=== PATIENT | female | born 1940 | race Native Hawaiian/Other Pacific Islander ===

== ENCOUNTER 2016-06-04 03:12 | Emergency (ER) | payer MEDICARE, OTHER ==
[2016-06-04 03:13] VITALS: BMI 25.4
--- NOTE | 2016-06-04 03:44 | C.PDOC ---
History Of Present Illness 76F c/o constant diffuse abd pain since last night. no exac or reliev fx. she took nexium. no n/v/d, fever, or dysuria. psh gb and surgery for "twisted colon. " Time Seen by Provider: 06/04/16 03:29 Chief Complaint (Nursing): Abdominal Pain Past Medical History Vital Signs: Last Vital Signs Temp 98.4 F 06/04/16 06:47 Pulse 82 06/04/16 06:47 Resp 18 06/04/16 06:47 BP 128/80 06/04/16 06:47 Pulse Ox 99 06/04/16 06:47 - Medical History PMH: Colonic Polyps, Diabetes, Gastritis, Gastrointestinal Ulcer, Gall Bladder Disease, Hypercholesterolemia, Hypothyroidism, 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), Pneumonia Denies: Chronic Kidney Disease Surgical History: Appendectomy, Cholecystectomy, Endoscopy - [facility] Procedures CHOLECYSTECTOMY (06/03/13) CLOSED ENDOSCOPIC BIOPSY OF LARGE INTESTINE (06/06/14) COLONOSCOPY (10/26/12) ESOPHAGOGASTRODUODENOSCOPY [EGD] W/CLOSED BIOPSY (01/31/14) EXCISION OF STOMACH, ENDO, DIAGN (02/26/16) Family History: States: Unknown Family Hx - Social History Hx Tobacco Use: No Hx Alcohol Use: No Hx Substance Use: No - Immunization History Hx Tetanus Toxoid Vaccination: No Hx Influenza Vaccination: Yes Hx Pneumococcal Vaccination: Yes Review Of Systems Except As Marked, All Systems Reviewed And Found Negative. Constitutional: Negative for: Fever, Chills, Malaise Cardiovascular: Negative for: Chest Pain Respiratory: Negative for: Cough, Shortness of Breath Gastrointestinal: Positive for: Abdominal Pain. Negative for: Nausea, Vomiting , Diarrhea, Constipation Genitourinary: Negative for: Dysuria, Frequency Neurological: Negative for: Weakness, Numbness Physical Exam - Physical Exam Appears: Well, Non-toxic, No Acute Distress Skin: Warm, Dry Head: Atraumatic Eye(s): bilateral: PERRL Oral Mucosa: Moist Neck: Normal ROM Cardiovascular: Rhythm Regular Respiratory: No Decreased Breath Sounds, No Accessory Muscle Use, No Rales, No Rhonchi, No Wheezing Gastrointestinal/Abdominal: Soft, Tenderness (RLQ), No Guarding, No Rebound Extremity: No Swelling Neurological/Psych: Oriented x3, Other (no focal deficits) ED Course And Treatment - Laboratory Results Result Diagrams: 06/04/16 04:15 06/04/16 04:15 O2 Sat by Pulse Oximetry: 96 Medical Decision Making Medical Decision Making: CT abd/pelvis impression vrad: IMPRESSION: - Diverticulosis of the colon. No diverticulitis. - Moderate fecal retention. Stable dilatation of the proximal colon - Prior right hemicolectomy. - Apparent fibroid extending off the uterus is stable cxr- nad 640am- disc results w the pt. she is feeling better and on re-exam has only very mild tenderness. I did offer to admit her for further observation and eval of her pain bu she wished to go home and will call Dr Wilkes today to make a follow up appt. will return if worse. Disposition - Disposition Referrals: Kyaw Wilkes MD [Staff Provider] - Disposition: HOME/ ROUTINE Disposition Time: 06:43 Condition: IMPROVED Additional Instructions: Please follow up with your doctor: call today to make an appointment. Return to the ER for any worsening symptoms or for any other concerns. Instructions: Acute Abdominal Pain (ED) Forms: General Discharge Instructions - Clinical Impression Clinical Impression: Abdominal pain
[2016-06-04] MEDS ORDERED: Sodium Chloride 0.9% 1,000 ML IV ONE (03:47)
[2016-06-04] MEDS ORDERED: Sodium Chloride 0.9% 1,000 ML ONE (04:01)
[2016-06-04 04:19] LABS: BASO # 0.1 K/uL (0.0-0.2); BASO % 0.7 % (0.0-2.0); EOS # 0.2 K/uL (0.0-0.7); EOS % 2.3 % (0.0-4.0); HEMATOCRIT 42.9 % (34.0-47.0); LYMPH # 1.4 K/uL (1.0-4.3); LYMPH % 18.4 % (20.0-40.0); MEAN CORPUSCULAR HEMOGLOBIN 28.5 pg (27.0-31.0); MEAN CORPUSCULAR HGB CONC 33.5 g/dL (33.0-37.0); MEAN PLATELET VOLUME 8.9 fL (7.2-11.7); MONO # 0.4 K/uL (0.0-0.8); MONO % 5.5 % (0.0-10.0); NRBC % 0.1 % (0.0-2.0); RBC URINE 1 /hpf (0-3); URINE BILIRUBIN NEGATIVE (NEGATIVE); URINE BLOOD NEGATIVE (NEGATIVE); URINE COLOR Yellow (YELLOW); URINE GLUCOSE (UA) NORMAL (Normal); URINE HYALINE CAST 0-2 /lpf (0-2); URINE KETONE NEGATIVE (NEGATIVE); URINE LEUKOCYTE ESTERASE TRACE Leu/uL (Negative); URINE PROTEIN NEGATIVE (NEGATIVE); URINE UROBILINOGEN NORMAL mg/dL (0.2-1.0); WBC URINE 9 /hpf (0-5); WHITE BLOOD COUNT 7.4 K/uL (4.8-10.8)
[2016-06-04 04:25] LABS: CHLORIDE 99 mmol/L (98-107)
[2016-06-04 04:26] LABS: POTASSIUM 4.4 mmol/L (3.6-5.2); SODIUM 139 mmol/L (132-148)
[2016-06-04 04:28] LABS: ALB/GLOB RATIO 1.3 (1.0-2.1); ALKALINE PHOSPHATASE 78 U/L (38-126); ALT/SGPT 28 U/L (9-52); AST/SGOT 37 U/L (14-36); BILIRUBIN,TOTAL 1.4 mg/dL (0.2-1.3); BLOOD UREA NITROGEN 17 mg/dL (7-17); CARBON DIOXIDE 26 mmol/L (22-30); GFR AFRICAN-AMERICAN > 60; GLUCOSE,RANDOM 116 mg/dL (65-105); TOTAL PROTEIN 7.6 g/dL (6.3-8.3)
[2016-06-04] MEDS ORDERED: Iodixanol 320 MG/ML 100 ML BOTTLE IV ONE (05:13)
[2016-06-04 06:48] VITALS: BP 128/80; PULSE 82; RESP 18; TEMP 98.4
--- NOTE | 2016-06-04 08:20 | CT ---
PROCEDURE: CT Abdomen and Pelvis with contrast HISTORY: abdominal pain COMPARISON: Comparison is made to the previous study dated 02/25/2016 TECHNIQUE: Contrast dose: 100 mL Visipaque 320 Radiation dose: Total exam DLP = 280.84 mGy-cm. FINDINGS: LOWER THORAX: Unremarkable. LIVER: No significant interval change in the liver noted since the previous exam. Again seen is low-attenuation lesion at the left liver lobe measures 11.5 millimeter in the current study which has increased in size since the previous exam. The possibility of neoplasm is not excluded. GALLBLADDER AND BILE DUCTS: The gallbladder is not visualized consistent with cholecystectomy. The CBD is slightly dilated. PANCREAS: Unremarkable. No gross lesion or ductal dilatation. SPLEEN: Unremarkable. ADRENALS: Unremarkable. No mass. KIDNEYS AND URETERS: The kidneys enhance symmetrically without evidence of hydronephrosis. Again seen is large cystic lesion at the upper pole of the right kidney. VASCULATURE: Unremarkable. No aortic aneurysm. BOWEL: The patient status post partial colectomy. Bowel anastomosis is seen at the left mid abdomen. Colonic diverticulosis are again seen without evidence of diverticulitis. There is a diffuse small bowel wall thickening more prominent at the lower abdomen associated with mild enhance wall and slightly dilated bowel loops. . APPENDIX: The appendix is not visualized likely resected with the right colon. PERITONEUM: Unremarkable. No free fluid. No free air. LYMPH NODES: Unremarkable. No enlarged lymph nodes. BLADDER: Unremarkable. REPRODUCTIVE: The uterus is enlarged. Again seen is pedunculated fibroid from the right uterine fundus measures 5.7 centimeter in the transverse diameter. BONES: No significant interval change in the osseous structures since the previous exam. Again seen is grade 1 anterior spondylolisthesis of L4 relative to L5. OTHER FINDINGS: None. IMPRESSION: Interval increase in the size of left liver lobe low-attenuation lesion since the previous exam. The possibility of malignant neoplasm such as liver metastasis is not totally excluded. . If clinically warranted further assessment by MRI may be obtained. Diffuse small bowel wall thickening at the mid and lower abdomen suspicious for enteritis. No evidence of high-grade bowel obstruction. Postsurgical changes consistent with patient's history of prior partial colectomy. Otherwise no significant interval change compared to the previous exam. Preliminary report was submitted by [facility].
--- NOTE | 2016-06-04 09:13 | RAD ---
HISTORY: Abdominal pain COMPARISON: 02/26/2016. FINDINGS: LUNGS: The lungs are clear. PLEURA: No significant pleural effusion identified, no pneumothorax apparent. CARDIOVASCULAR: The cardiomediastinal silhouette is normal. OSSEOUS STRUCTURES: No significant abnormalities. VISUALIZED UPPER ABDOMEN: Normal. OTHER FINDINGS: None. IMPRESSION: No active pulmonary disease.
[2016-06-07 13:03] VITALS: O2SAT 96
== END 2016-06-04 07:04 | disposition home or self-care (01) ==
LOC: C.ER 03:12
DX: R10.31 Right lower quadrant pain (principal)

== ENCOUNTER 2016-06-05 21:09 | Observation (INO) | payer MEDICARE, OTHER ==
[2016-06-05 21:09] VITALS: BMI 25.4
[2016-06-05] MEDS ORDERED: Sodium Chloride 0.9% 1,000 ML IV ONE (22:38)
[2016-06-05] MEDS ORDERED: Morphine 4 MG/ML VIAL ONE (22:49)
[2016-06-05] MEDS ORDERED: Sodium Chloride 0.9% 1,000 ML ONE (22:49)
[2016-06-05 22:56] LABS: BASO % 0.5 % (0.0-2.0); EOS # 0.2 K/uL (0.0-0.7); EOS % 2.9 % (0.0-4.0); HEMATOCRIT 41.1 % (34.0-47.0); LYMPH # 1.4 K/uL (1.0-4.3); LYMPH % 25.8 % (20.0-40.0); MEAN CELL VOLUME 84.8 fL (81.0-99.0); MEAN CORPUSCULAR HEMOGLOBIN 27.4 pg (27.0-31.0); MEAN CORPUSCULAR HGB CONC 32.3 g/dL (33.0-37.0); MEAN PLATELET VOLUME 8.7 fL (7.2-11.7); MONO # 0.4 K/uL (0.0-0.8); MONO % 7.2 % (0.0-10.0); RED CELL DISTRIBUTION WIDTH 13.9 % (11.5-14.5); WHITE BLOOD COUNT 5.6 K/uL (4.8-10.8)
[2016-06-05 23:03] LABS: RBC URINE 1 /hpf (0-3); URINE BACTERIA OCC (<OCC); URINE BILIRUBIN NEGATIVE (NEGATIVE); URINE BLOOD NEGATIVE (NEGATIVE); URINE COLOR Yellow (YELLOW); URINE GLUCOSE (UA) NORMAL (Normal); URINE KETONE NEGATIVE (NEGATIVE); URINE LEUKOCYTE ESTERASE TRACE Leu/uL (Negative); URINE PROTEIN NEGATIVE (NEGATIVE); URINE UROBILINOGEN NORMAL mg/dL (0.2-1.0); WBC URINE 9 /hpf (0-5)
[2016-06-05 23:04] LABS: CHLORIDE 99 mmol/L (98-107); POTASSIUM 3.6 mmol/L (3.6-5.2); SODIUM 139 mmol/L (132-148)
[2016-06-05 23:06] LABS: BILIRUBIN,TOTAL 0.6 mg/dL (0.2-1.3); GFR AFRICAN-AMERICAN > 60
--- NOTE | 2016-06-05 23:06 | C.PDOC ---
History Of Present Illness 76 year old pt c/o abdominal pain that started 3 days ago. Pt was seen here in the ED yesterday and blood works, urinalysis, CT, and other lab works were done. Lab results were all fine for pt during prior visit. Pt went home and returned stating pain is worse today. Pt denies cough, fever, nausea, vomiting, diarrhea, dysuria, hematuria, vaginal bleeding, vaginal discharge, or any other complaints. Time Seen by Provider: 06/05/16 21:59 Chief Complaint (Nursing): Abdominal Pain History Per: Patient History/Exam Limitations: no limitations Onset/Duration Of Symptoms: Days Current Symptoms Are (Timing): Still Present Severity: Mild Associated Symptoms: denies: Fever, Chills, Nausea, Vomiting, Diarrhea, Other ( Hematuria, dysuria, vaginal bleeding or discharge. Cough) Past Medical History Reviewed: Historical Data, Nursing Documentation, Vital Signs Vital Signs: Last Vital Signs Temp 97.9 F 06/05/16 23:00 Pulse 59 L 06/05/16 23:00 Resp 18 06/05/16 23:00 BP 146/72 06/05/16 23:00 Pulse Ox 98 06/05/16 23:15 - Medical History PMH: Colonic Polyps, Diabetes, Gastritis, Gastrointestinal Ulcer, Gall Bladder Disease, Hypercholesterolemia, Hypothyroidism, 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), Pneumonia Denies: Chronic Kidney Disease Surgical History: Appendectomy, Cholecystectomy, Endoscopy - [facility] Procedures CHOLECYSTECTOMY (06/03/13) CLOSED ENDOSCOPIC BIOPSY OF LARGE INTESTINE (06/06/14) COLONOSCOPY (10/26/12) ESOPHAGOGASTRODUODENOSCOPY [EGD] W/CLOSED BIOPSY (01/31/14) EXCISION OF STOMACH, ENDO, DIAGN (02/26/16) Family History: States: Unknown Family Hx - Social History Hx Tobacco Use: No Hx Alcohol Use: No Hx Substance Use: No - Immunization History Hx Tetanus Toxoid Vaccination: No Hx Influenza Vaccination: Yes Hx Pneumococcal Vaccination: Yes Review Of Systems Except As Marked, All Systems Reviewed And Found Negative. Constitutional: Negative for: Fever, Chills Respiratory: Negative for: Cough Gastrointestinal: Positive for: Abdominal Pain. Negative for: Nausea, Vomiting , Diarrhea Genitourinary: Negative for: Dysuria, Hematuria, Vaginal Discharge, Vaginal Bleeding Physical Exam - Physical Exam Appears: Well, Non-toxic Skin: Warm, Dry Head: Atraumatic, Normacephalic Cardiovascular: Rhythm Regular Respiratory: Normal Breath Sounds, No Rales, No Rhonchi, No Wheezing Gastrointestinal/Abdominal: Tenderness (Mild pain. Abdominal tenderness ( suprapubic and RLQ)), No Guarding, No Rebound, No Other (No CVA tenderness) Neurological/Psych: Oriented x3, Normal Speech ED Course And Treatment - Laboratory Results Result Diagrams: 06/05/16 22:53 06/05/16 22:53 O2 Sat by Pulse Oximetry: 98 Progress Note: Pt was given repeated labs from prior visit. Fluid morphine and zofran was given to pt. - Scribe Statement The provider has reviewed the documentation as recorded by the Scribe Ronnie gage All medical record entries made by the Scribe were at my direction and personally dictated by me. I have reviewed the chart and agree that the record accurately reflects my personal performance of the history, physical exam, medical decision making, and the department course for this patient. I have also personally directed, reviewed, and agree with the discharge instructions and disposition.
[2016-06-05 23:07] LABS: ALB/GLOB RATIO 1.5 (1.0-2.1); ALKALINE PHOSPHATASE 85 U/L (38-126); ALT/SGPT 25 U/L (9-52); AST/SGOT 28 U/L (14-36); BLOOD UREA NITROGEN 18 mg/dL (7-17); CALCIUM 8.8 mg/dl (8.6-10.4); CARBON DIOXIDE 25 mmol/L (22-30); GLUCOSE,RANDOM 135 mg/dL (65-105); TOTAL PROTEIN 6.8 g/dL (6.3-8.3)
[2016-06-06 01:22] VITALS: RESP 20
[2016-06-06 08:18] VITALS: O2SAT 97
[2016-06-06] MEDS: Enoxaparin 40 mg Syringe SC SCH (09:51)
--- NOTE | 2016-06-06 12:28 | PN ---
DATE: 06/06/2016 LOCATION: 360, bed B. I was called for GI consultation. The patient is seen and fully examined on 06/05/2016 as requested by the admitting MD. The patient reexamined and evaluated today with less abdominal pain, no nausea and vomiting, with positive bowel sounds. No reported active bleeding. No reported vomiting, but mi ld nausea with slight dyspepsia. The entire chart is reviewed, including but not limited to the most recent lab and radiology study re sults, current and previous medication list, current and the previous medical events, and the patient still has normal blood glucose level of 94 with normal CBC. PHYSICAL EXAMINATION: GENERAL: A 76-year-old female, awake, alert, oriented. Afebrile with pulse of 58, respiratory rate 20-22, with blood pressure 110/58. HEENT: Showed pale, dry mucoid membrane. Nonicteric sclerae. LUNGS: Few scattered crepitation, decreased air entry at bases. HEART: Positive S1 and S2. ABDOMEN: Soft with slight lower abdominal tenderness. Bowel sounds are present. No mass or organom egaly. No rebound tenderness or guarding. RECTAL EXAMINATION: Positive tone. Vault is empty. EXTREMITIES: Without significant edema, clubbing, or cyanosis. No reported neurological deficits, sensory, or motor. IMPRESSION: 1. Re-exacerbation of peptic ulcer disease. 2. Acute gastroenteritis. 3. Known history of gastric ulcer. 4. Colon cancer with status post partial colon resection by history in 2004. 5. Known history of hypothyroidism, hyperlipidemia, as well as diabetes mellitus. 6. Known history of status post cholecystectomy and appendectomy in the past, as per the patient's st atement. SUGGESTION: 1. Agree with your plan. 2. IV antibiotics. 3. Vancomycin p.o. 4. Proton pump inhibitors. 5. tab 1 twice a day. 6. No need for aggressive GI workup in the meantime, and the stool for C. diff to be ordered. Holger Palencia MD cc: 14 TT: 06/06/2016 12:27:30 Confirmation # [id number] Dictation # [id number] frannie
--- NOTE | 2016-06-06 19:31 | CP.PCM.HP ---
History of Present Illness - History of Present Illness History of Present Illness: 76 years old female complaining of a lower abdominal pain for the past few days. Denies any fever, diarrhea, nausea, vomiting. She was seen in the ED yesterday, but was sent home because, all her lab works were normal and a CT scan of the abdomen and pelvis with contrast did not reveal any acute process. But she came back today with the same complaint and request to be hospitalized and be seen by her gastro-enterologist, Dr Palencia. She had a benign colonoscopy a few weeks ago. She is known to have a NIDDM, a HPTN, a hypothyroidism, a s/p Right hemicolectomy for cancer in 2004, and s/p cholecystectomy and appendectomy. Present on Admission - Present on Admission Any Indicators Present on Admission: No Review of Systems - Gastrointestinal Gastrointestinal: Abdominal Pain Past Patient History - Infectious Disease Hx of Infectious Diseases: None - Tetanus Immunizations Tetanus Immunization: Unknown - Past Medical History & Family History Past Medical History?: Yes - Past Social History Smoking Status: Never Smoked Alcohol: None Drugs: Denies Home Situation {Lives}: With Family Domestic Violence: Negative - CARDIAC Hx Cardiac Disorders: Yes Hx Hypercholesterolemia: Yes - PULMONARY Hx Respiratory Disorders: No - NEUROLOGICAL Hx Neurological Disorder: No - HEENT Hx HEENT Problems: Yes Hx Cataracts: Yes (BIOL) - RENAL Hx Chronic Kidney Disease: No - ENDOCRINE/METABOLIC Hx Endocrine Disorders: Yes Hx Diabetes Mellitus Type 2: Yes Hx Hypothyroidism: Yes - HEMATOLOGICAL/ONCOLOGICAL Hx Blood Disorders: No - INTEGUMENTARY Hx Dermatological Problems: No - MUSCULOSKELETAL/RHEUMATOLOGICAL Hx Musculoskeletal Disorders: Yes Hx Falls: No Other/Comment: TORN LIGAMENTS BILATERAL KNEES - GASTROINTESTINAL Hx Gastrointestinal Disorders: Yes Hx Gall Bladder Disease: Yes Hx Gastritis: Yes - GENITOURINARY/GYNECOLOGICAL Hx Genitourinary Disorders: No - PSYCHIATRIC Hx Psychophysiologic Disorder: No Hx Substance Use: No - SURGICAL HISTORY Hx Surgeries: Yes Hx Appendectomy: Yes Hx Cholecystectomy: Yes Other/Comment: S/p right hemicolectomy for colon cancer in 2004. - ANESTHESIA Hx Anesthesia: Yes Hx Anesthesia Reactions: No Hx Malignant Hyperthermia: No Meds Allergies/Adverse Reactions: Allergies Allergy/AdvReac Type Severity Reaction Status Date / Time No Known Allergies Allergy Verified 02/26/16 06:27 Physical Exam - Constitutional Appears: No Acute Distress - Head Exam Head Exam: NORMAL INSPECTION - Eye Exam Eye Exam: Normal appearance - ENT Exam ENT Exam: Normal Exam - Neck Exam Neck exam: Positive for: Normal Inspection - Respiratory Exam Respiratory Exam: Clear to Auscultation Bilateral, NORMAL BREATHING PATTERN - Cardiovascular Exam Cardiovascular Exam: REGULAR RHYTHM - GI/Abdominal Exam GI & Abdominal Exam: Normal Bowel Sounds, Soft - Rectal Exam Rectal Exam: NORMAL INSPECTION - Extremities Exam Extremities exam: Positive for: normal inspection - Back Exam Back exam: NORMAL INSPECTION - Neurological Exam Neurological exam: Alert, CN II-XII Intact, Normal Gait, Oriented x3 - Psychiatric Exam Psychiatric exam: Anxious - Skin Skin Exam: Dry, Intact, Normal Color, Warm Results - Vital Signs Recent Vital Signs: Last Vital Signs Temp 98.1 F 06/06/16 16:00 Pulse 62 06/06/16 16:00 Resp 20 06/06/16 16:00 BP 103/61 06/06/16 16:00 Pulse Ox 97 06/06/16 16:00 - Labs Result Diagrams: 06/05/16 22:53 06/05/16 22:53 Labs: Laboratory Results - last 24 hr 06/06/16 06/06/16 06/06/16 07:23 11:32 11:53 POC Glucose (mg/dL) 94 56 L 109 06/06/16 16:15 POC Glucose (mg/dL) 102 Assessment & Plan (1) Abdominal pain Assessment and Plan: GI evaluation by Dr Palencia. Status: Acute
[2016-06-07 01:34] VITALS: TEMP 97.8
[2016-06-07] MEDS ORDERED: Levothyroxine 50 MCG TAB PO SCH (06:30)
[2016-06-07 10:51] VITALS: BP 148/75; PULSE 54
[2016-06-07] MEDS: Enoxaparin 40 mg Syringe SC SCH (11:02)
--- NOTE | 2016-06-07 12:43 | PN ---
DATE: 06/07/2016 LOCATION: 360, bed B. This is a 76-year-old female seen and examined in rounds without significant clinical changes. Awake , alert, oriented. Denied any nausea or vomiting, but slight lower abdominal pain on and off. No re ported active bleeding. The entire chart is reviewed including, but not limited to the most recent lab and radiology study re sults, current and the previous medication lists, current and the previous medical events with recent blood glucose level of 118. PHYSICAL EXAMINATION: GENERAL: A 76-year-old female. VITAL SIGNS: Afebrile with heart rate of 58, respiratory rate 20-22, blood pressure 140/72. HEENT: Showed pale, dry oral mucoid membrane. Nonicteric sclerae. LUNGS: Few scattered crepitation. Decreased air entry at bases. HEART: Positive S1 and S2. ABDOMEN: Soft with mild generalized tenderness. No mass or organomegaly. No rebound tenderness or guarding. EXTREMITIES: Without edema, clubbing or cyanosis. NEUROLOGIC: No new reported neurological deficits, sensory or motor. IMPRESSION: 1. Peptic ulcer disease. 2. Acute gastritis. 3. Acute enteritis with mild reported ileus. 4. Known history of gastric ulcer. 5. Known history of cancer of the colon. 6. Status post partial colon resection by history in 2004. 7. Known history of hypertension, diabetes mellitus and hyperlipidemia. 8. History of status post appendectomy as well as cholecystectomy. SUGGESTION: 1. Continue current management. 2. IV antibiotics. 3. Bentyl p.o. 4. tab 1 tablet increased to 3 times a day. 5. No need for aggressive GI workup and cancer markers to be repeated. Holger Palencia MD cc: 14 TT: 06/07/2016 12:43:04 Confirmation # [id number] Dictation # [id number] tn
--- NOTE | 2016-06-07 14:55 | CP.PCM.PN ---
Subjective - Date & Time of Evaluation Date of Evaluation: 06/07/16 Time of Evaluation: 14:52 - Subjective Subjective: Patient still has a mild RLQ abdominal pain, but has normal BM, and is afebrile , with no nausea. Dr Palencia suggested antibiotic to treat her Enteritis. Will discharge her home on Metronidazole 500 mg PO TID and Cipro 500 mg PO BID for 7 days. Objective - Vital Signs/Intake and Output Vital Signs (last 24 hours): Temp Pulse Resp BP Pulse Ox 97.8 F 54 L 20 148/75 97 06/07/16 08:00 06/07/16 08:00 06/07/16 08:00 06/07/16 08:00 06/07/16 08:00 Intake and Output: 06/07/16 06/07/16 06:59 18:59 Intake Total 200 Balance 200 - Medications Medications: Current Medications Enoxaparin Sodium (Lovenox) 40 mg SC DAILY [facility] Last Admin: 06/07/16 11:02 Dose: 40 mg Levothyroxine Sodium (Synthroid) 50 mcg PO DAILY@0630 [facility] Last Admin: 06/07/16 06:08 Dose: 50 mcg Metformin HCl (Glucophage Xr) 500 mg PO BIDAC [facility] Last Admin: 06/07/16 08:50 Dose: 500 mg Rosuvastatin Calcium (Crestor) 5 mg PO HS [facility] Last Admin: 06/06/16 21:10 Dose: 5 mg - Constitutional Appears: No Acute Distress - Head Exam Head Exam: NORMAL INSPECTION - Eye Exam Eye Exam: Normal appearance - ENT Exam ENT Exam: Normal Exam - Neck Exam Neck Exam: Normal Inspection - Respiratory Exam Respiratory Exam: Clear to Ausculation Bilateral, NORMAL BREATHING PATTERN - Cardiovascular Exam Cardiovascular Exam: REGULAR RHYTHM - GI/Abdominal Exam GI & Abdominal Exam: Soft, Normal Bowel Sounds Additional comments: Mild tenderness of the RLQ, but no rebound. - Rectal Exam Rectal Exam: Deferred - Extremities Exam Extremities Exam: Normal Inspection - Back Exam Back Exam: NORMAL INSPECTION - Neurological Exam Neurological Exam: Alert, Awake, Normal Gait, Oriented x3 - Psychiatric Exam Psychiatric exam: Anxious - Skin Skin Exam: Dry, Intact, Normal Color, Warm Assessment and Plan (1) Abdominal pain Assessment & Plan: Abdominal pain much better after a large BM yesterday and today. Dr Palencia suggested antibiotic for the acute enteritis. Will discharge her home on Metronidazole and cipro. Status: Acute
--- NOTE | 2016-06-09 09:24 | CON ---
DATE: 06/05/[address] Holger Palencia to Dr. Kyaw Wilkes. I was called for GI consultation by the primary MD. Chart is reviewed. The patient examined. All t he available lab and radiology study results seen pre and post my physical examination on 06/05/2016 w ith the staff on the floor. Case discussed with the primary MD on 06/05/2016 at length. This 76-year-old female was admitted to the hospital through the Emergency Room with a main complaint of severe crampy abdominal pain, postprandial abdominal distention, change of bowel movement habit w ith nausea and dyspepsia, which was getting worse through the last 24 hours, for which she contacted my office and was directed to come to the hospital. No reported active bleeding. No palpitation, chest pain or significant shortness of breath. After being admitted to the hospital, patient was found to have initially normal CBC with increased b lood glucose level 135 and increased BUN to 18. PHYSICAL EXAMINATION: GENERAL: A 76-year-old female, appeared to be awake, alert, oriented. VITAL SIGNS: Afebrile with pulse of 62, respiratory rate of 20-22, blood pressure of 140/74. HEENT: Showed mildly pale, dry oral mucoid membrane. Nonicteric sclerae. LUNGS: Few scattered crepitation, decreased air entry at bases. HEART: Positive S1 and S2. LYMPH NODES: No lymphadenitis or lymphadenopathy. ABDOMEN: Soft with generalized tenderness and mild distention. No mass or organomegaly. No rebound tenderness or guarding. RECTAL: Positive tone. Vault is empty. EXTREMITIES: Without significant edema, clubbing or cyanosis. NEUROLOGIC: No reported neurological deficit, sensory or motor. PAST MEDICAL HISTORY: Includin. Colon cancer with status post partial colon resection. 2. Diabetes mellitus. 3. Peptic ulcer disease. 4. Hypothyroidism as well as history of hyperlipidemia. 5. Known history of pneumonia before. 6. Status post cholecystectomy as well as appendectomy. FAMILY HISTORY: Unknown. SOCIAL HISTORY: No known history of cigarette smoking or alcohol intake. CURRENT MEDICATIONS: Medication lists were reviewed. ALLERGY TO MEDICATION: Unclear. IMPRESSION: 1. Reexacerbation of peptic ulcer disease. 2. Rule out intermittent partial colon obstruction. 3. Possible diverticulosis with acute diverticulitis. 4. Past medical history including, but not limited to, colon cancer, partial colon resection, hypoth yroidism, hyperlipidemia as well as status post cholecystectomy and appendectomy. SUGGESTION: 1. Agree with your plan. 2. Sectional abdominal and pelvic CAT scan. 3. Complete stool workup. 4. Proton pump inhibitors. 5. IV Flagyl. 6. Reglan IV. 7. Bentyl p.o. 8. No need for aggressive gastrointestinal workup in the meantime and further recommendations to fol low. Thank you for letting me participate in your patient's case management. Holger Palencia MD cc: 14 TT: 06/09/2016 08:25:41 Confirmation # [id number] Dictation # [id number]
== END 2016-06-07 15:35 | disposition home or self-care (01) ==
LOC: C.ER 21:09 → INTOOBSV 06-06 00:10 → C.3T 06-06 00:10
PROVIDERS: ADMIT Internal Medicine Cardiovascular Disease; ATTEND Internal Medicine Cardiovascular Disease
DX: K27.9 Peptic ulcer, site unspecified, unspecified as acute or chronic, without hemorrhage or perforation (principal); K52.9 Noninfective gastroenteritis and colitis, unspecified; K29.00 Acute gastritis without bleeding; K56.7 Ileus, unspecified; I10 Essential (primary) hypertension; E11.9 Type 2 diabetes mellitus without complications; E78.5 Hyperlipidemia, unspecified; Z85.038 Personal history of other malignant neoplasm of large intestine; Z90.49 Acquired absence of other specified parts of digestive tract
CPT/HCPCS: 71010; 74177; 80053; 81001; 82948; 83690; 85025; 96360; 96361; 96374; 99285; G0378; J1650; J2270; J2405; J7040; Q9967

== ENCOUNTER 2017-03-24 01:46 | Inpatient (IN) | payer MEDICARE ==
[2017-03-24 01:46] VITALS: BMI 25.4
[2017-03-24 02:18] LABS: SQUAMOUS EPITHIAL 1 /hpf (0-5); URINE BILIRUBIN NEGATIVE (NEGATIVE); URINE BLOOD NEGATIVE (NEGATIVE); URINE CLARITY Clear (Clear); URINE COLOR Yellow (YELLOW); URINE GLUCOSE (UA) NORMAL (Normal); URINE LEUKOCYTE ESTERASE 1+ Leu/uL (Negative); URINE NITRATE NEGATIVE (NEGATIVE); URINE PROTEIN 1+ mg/dL (NEGATIVE); URINE UROBILINOGEN NORMAL mg/dL (0.2-1.0)
[2017-03-24 02:51] LABS: BASO # 0.1 K/uL (0.0-0.2); BASO % 0.6 % (0.0-2.0); EOS # 0.2 K/uL (0.0-0.7); EOS % 2.3 % (0.0-4.0); HEMOGLOBIN 14.8 g/dL (11.0-16.0); LYMPH # 1.6 K/uL (1.0-4.3); LYMPH % 20.3 % (20.0-40.0); MEAN CORPUSCULAR HEMOGLOBIN 28.9 pg (27.0-31.0); MEAN CORPUSCULAR HGB CONC 33.6 g/dL (33.0-37.0); MEAN PLATELET VOLUME 8.7 fL (7.2-11.7); MONO # 0.5 K/uL (0.0-0.8); MONO % 6.1 % (0.0-10.0); NEUT # 5.7 K/uL (1.8-7.0); NEUT % 70.7 % (50.0-75.0); NRBC % 0.1 % (0.0-2.0); RBC 5.13 Mil/uL (3.80-5.20); RED CELL DISTRIBUTION WIDTH 13.1 % (11.5-14.5)
[2017-03-24 02:53] LABS: ALB/GLOB RATIO 1.3 (1.0-2.1); ALBUMIN 4.4 g/dL (3.5-5.0); ALT/SGPT 26 U/L (9-52); AST/SGOT 30 U/L (14-36); BLOOD UREA NITROGEN 18 mg/dL (7-17); CALCIUM 9.2 mg/dl (8.6-10.4); GFR AFRICAN-AMERICAN > 60; GFR NON-AFRICAN AMERICAN > 60
[2017-03-24] MEDS ORDERED: Sodium Chloride 0.9% 1,000 ML ONE (03:31)
[2017-03-24] MEDS ORDERED: Sodium Chloride 0.9% 1,000 ML IV ONE (03:32)
[2017-03-24] MEDS ORDERED: Iodixanol 320 mg/ml 150 ml Bottle IV ONE (03:42)
--- NOTE | 2017-03-24 04:58 | CT ---
EXAM: CT Abdomen and Pelvis With Intravenous Contrast CLINICAL HISTORY: 76 years old, female; Pain; Abdominal pain; Other: Abdominal pain & constipation; Prior surgery; Surgery date: 6+ months; Surgery type: Tumor of colon; Patient HX: Diarrhea yesterday , constipation today. HX of benign colon tumor TECHNIQUE: Axial computed tomography images of the abdomen and pelvis with intravenous contrast. All CT scans at this facility use one or more dose reduction techniques, viz.: automated exposure control; ma/kV adjustment per patient size (including targeted exams where dose is matched to indication; i.e. head); or iterative reconstruction technique. Coronal and sagittal reformatted images were created and reviewed. CONTRAST: 100 mL of visipaque administered intravenously. COMPARISON: CT - ABD PELVIS IV CONTRAST ONLY 2016-06-04 05:40 FINDINGS: Lower thorax: Minimal atelectasis. RIGHT pleural calcification or RIGHT lower lobe granuloma. ABDOMEN: Liver: 1.0 x 1.1 x 1.3 low-attenuation lesion with suspicious imaging features but stable. Gallbladder and bile ducts: Cholecystectomy. No significant ductal dilation. Pancreas: No ductal dilation. No mass. Spleen: Too small to characterize lesion. No splenomegaly. Adrenals: No mass. Kidneys and ureters: Probable large RIGHT renal cyst. Few too small to characterize lesions within kidneys. No hydronephrosis. Stomach and bowel: RIGHT hemicolectomy. Scattered diverticula within colon. No associated inflammatory stranding. Mildly dilated loops of mid small bowel. Nondistended loops of distal small bowel. Mild stranding/fluid within associated small bowel mesentery. Appendix: Appendectomy. PELVIS: Bladder: Unremarkable. Reproductive: 4.0 x 5.6 x 4.7 cm heterogeneous mass within right adnexal region contiguous with uterus. ABDOMEN and PELVIS: Intraperitoneal space: No significant fluid collection. No free air. Bones/joints: Degenerative anterolisthesis/mild degenerative changes of lower lumbar spine. No acute fracture. Soft tissues: Unremarkable. Vasculature: Mild atherosclerotic disease. No aneurysm. Lymph nodes: No pathologically enlarged lymph nodes. IMPRESSION: 1. Findings suggestive of early small bowel obstruction. 2. Liver lesion, indeterminate but stable. Consider MRI. 3. Right adnexal lesion, indeterminate but possibly exophytic fibroid, stable. Consider ultrasound. 4. Incidental/non-acute findings are described above.
--- NOTE | 2017-03-24 05:48 | C.PDOC ---
History Of Present Illness 76 year old female presents to the ED for evaluation of periumbilical pain which has been worsening throughout the day. Patient reports history of Diverticulitis and colon cancer with hemicolectomy in 2004. She denies fever, chills, nausea, vomiting at this time. Time Seen by Provider: 03/24/17 03:34 Chief Complaint (Nursing): Abdominal Pain History Per: Patient History/Exam Limitations: no limitations Onset/Duration Of Symptoms: Hrs Current Symptoms Are (Timing): Worse Location Of Pain/Discomfort: Periumbilical Radiation Of Pain To:: None Quality Of Discomfort: "Pain" Associated Symptoms: denies: Fever, Chills, Nausea, Vomiting Additional History Per: Patient Past Medical History Reviewed: Historical Data, Nursing Documentation, Vital Signs Vital Signs: Last Vital Signs Temp 97.9 F 03/24/17 06:44 Pulse 76 03/24/17 06:44 Resp 20 03/24/17 06:44 BP 163/81 H 03/24/17 06:44 Pulse Ox 97 03/24/17 06:44 - Medical History PMH: Colonic Polyps, Diabetes, Gastritis, Gastrointestinal Ulcer, Gall Bladder Disease, Hypercholesterolemia, Hypothyroidism, 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), Pneumonia Denies: Chronic Kidney Disease Surgical History: Appendectomy, Cholecystectomy, Endoscopy - [facility] CHOLECYSTECTOMY (06/03/13) CLOSED ENDOSCOPIC BIOPSY OF LARGE INTESTINE (06/06/14) COLONOSCOPY (10/26/12) ESOPHAGOGASTRODUODENOSCOPY [EGD] W/CLOSED BIOPSY (01/31/14) EXCISION OF STOMACH, ENDO, DIAGN (02/26/16) Family History: States: Unknown Family Hx - Social History Hx Tobacco Use: No Hx Alcohol Use: No Hx Substance Use: No - Immunization History Hx Tetanus Toxoid Vaccination: No Hx Influenza Vaccination: Yes Hx Pneumococcal Vaccination: Yes Review Of Systems Constitutional: Negative for: Fever, Chills Gastrointestinal: Positive for: Abdominal Pain (periumbilical). Negative for: Nausea, Vomiting Physical Exam - Physical Exam Appears: Non-toxic, No Acute Distress Skin: Normal Color, Warm, Dry Head: Atraumatic, Normacephalic Eye(s): bilateral: Normal Inspection Oral Mucosa: Moist Neck: Supple Chest: Symmetrical, No Deformity, No Tenderness Cardiovascular: Rhythm Regular, No Murmur Respiratory: Normal Breath Sounds, No Rales, No Rhonchi, No Wheezing Gastrointestinal/Abdominal: Soft, Tenderness (periumbilical ), Distention, No Guarding, No Rebound Extremity: Normal ROM, Capillary Refill (less than 2 seconds ) Neurological/Psych: Oriented x3, Normal Speech, Normal Cognition Gait: Steady ED Course And Treatment - Laboratory Results Result Diagrams: 03/24/17 02:39 03/24/17 02:39 O2 Sat by Pulse Oximetry: 96 (on RA) Pulse Ox Interpretation: Normal - CT Scan/US CT A/P Other Rad Studies (CT/US): Interpreted By Me, Read By Radiologist, Radiology Report Reviewed CT/US Interpretation: IMPRESSION: 1. Findings suggestive of early small bowel obstruction. 2. Liver lesion, indeterminate but stable. Consider MRI. 3. Right adnexal lesion, indeterminate but possibly exophytic fibroid, stable. Consider ultrasound. 4. Incidental/non-acute findings are described above Progress Note: Bloodwork, Urinalysis, CT A/P ordered and reviewed. Toradol IVP and IV Fluids administered. Case discussed with Dr. Wilkes at 0530, who agrees to admit the patient. Advises surgical consult with Dr. Bardales. Disposition Doctor Will See Patient In The: Hospital Counseled Patient/Family Regarding: Studies Performed, Diagnosis - Disposition Disposition: HOSPITALIZED Disposition Time: 05:40 Condition: FAIR - Clinical Impression Clinical Impression: Abdominal pain, Small bowel obstruction - Scribe Statement The provider has reviewed the documentation as recorded by the Scribe (Anna Thompson) Provider Attestation: All medical record entries made by the Scribe were at my direction and personally dictated by me. I have reviewed the chart and agree that the record accurately reflects my personal performance of the history, physical exam, medical decision making, and the department course for this patient. I have also personally directed, reviewed, and agree with the discharge instructions and disposition.
--- NOTE | 2017-03-24 06:22 | CP.PCM.CON ---
History of Present Illness - History of Present Illness History of Present Illness: General surgery consult for Dr. Samina Thomas, PGY-1 76F w/PMH sig for DM and colon surgery consulted for abdominal pain x 1 day. Pt reports sudden onset of periumbilical abdominal pain, constant, variable location, non radiating, moderate-severe intensity. Admits to bloating, diarrhea (soft, not formed), flatus, enema early this AM with stool return, normal appetite, emesis x 2 (nbnb). Denies F & C, changes in bladder habits, other complaints. States she has a prevoius episodes of similar with NGT placement CT positive for mildly dilated loops of mid SB w/mild stranding/fluid w/in assoc SB mesentery. PMH: DM, HLD PSH: B/L knee sx, B/L eye sx, cholecystectomy, colon tumor resection (benign tumor) All: NKDA SH: Denies tobacco, ETOH or illicit drug use Review of Systems - Review of Systems All systems: reviewed and no additional remarkable complaints except - Constitutional Constitutional: absent: Chills, Fever, Headache, Increased Appetite, Weakness - EENT Eyes: absent: Change in Vision Nose/Mouth/Throat: Dry Mouth - Cardiovascular Cardiovascular: absent: Chest Pain - Respiratory Respiratory: absent: Cough - Gastrointestinal Gastrointestinal: Abdominal Pain, Bloating, Change in Bowel Habits, Constipation , Diarrhea, Nausea, Vomiting. absent: Hematemesis, Hematochezia - Genitourinary Genitourinary: absent: Change in Urinary Stream - Musculoskeletal Musculoskeletal: absent: Back Pain - Integumentary Integumentary: absent: Rash - Neurological Neurological: absent: Headaches - Psychiatric Psychiatric: absent: Change in Appetite Past Patient History - Infectious Disease Hx of Infectious Diseases: None - Tetanus Immunizations Tetanus Immunization: Unknown - Past Medical History & Family History Past Medical History?: Yes - Past Social History Smoking Status: Never Smoked - CARDIAC Hx Hypercholesterolemia: Yes - PULMONARY Hx Pneumonia: Yes - NEUROLOGICAL Hx Neurological Disorder: No - HEENT Hx HEENT Problems: Yes Hx Cataracts: Yes (BIOL) - RENAL Hx Chronic Kidney Disease: No - ENDOCRINE/METABOLIC Hx Hypothyroidism: Yes - HEMATOLOGICAL/ONCOLOGICAL Hx Blood Disorders: No - INTEGUMENTARY Hx Dermatological Problems: No - MUSCULOSKELETAL/RHEUMATOLOGICAL Hx Musculoskeletal Disorders: Yes Hx Falls: No Other/Comment: TORN LIGAMENTS BILATERAL KNEES - GASTROINTESTINAL Hx Gall Bladder Disease: Yes Hx Gastritis: Yes - GENITOURINARY/GYNECOLOGICAL Hx Genitourinary Disorders: No - PSYCHIATRIC Hx Substance Use: No - SURGICAL HISTORY Hx Appendectomy: Yes Hx Cholecystectomy: Yes - ANESTHESIA Hx Anesthesia: Yes Hx Anesthesia Reactions: No Hx Malignant Hyperthermia: No Meds Allergies/Adverse Reactions: Allergies Allergy/AdvReac Type Severity Reaction Status Date / Time No Known Allergies Allergy Verified 03/24/17 01:58 Physical Exam - Head Exam Head Exam: ATRAUMATIC, NORMAL INSPECTION, NORMOCEPHALIC - Eye Exam Eye Exam: EOMI, Normal appearance - ENT Exam ENT Exam: Mucous Membranes Moist, Normal Exam - Neck Exam Neck exam: Positive for: Full Rom, Normal Inspection - Respiratory Exam Respiratory Exam: Clear to Auscultation Bilateral, NORMAL BREATHING PATTERN - Cardiovascular Exam Cardiovascular Exam: REGULAR RHYTHM, +S1, +S2 - GI/Abdominal Exam GI & Abdominal Exam: Distended (mildly), Hypoactive Bowel Sounds, Soft, Tenderness (diffuse). absent: Firm, Guarding, Rebound, Rigid - Extremities Exam Extremities exam: Positive for: normal inspection. Negative for: pedal edema - Neurological Exam Neurological exam: Alert, CN II-XII Intact, Oriented x3 - Psychiatric Exam Psychiatric exam: Normal Affect, Normal Mood - Skin Skin Exam: Dry, Intact, Normal Color, Warm Additional comments: well healed midline abdominal scar Results - Vital Signs Recent Vital Signs: Last Vital Signs Temp 97.7 F 03/24/17 04:40 Pulse 62 03/24/17 05:34 Resp 16 03/24/17 05:34 BP 111/62 03/24/17 05:34 Pulse Ox 96 03/24/17 05:58 - Labs Result Diagrams: 03/24/17 02:39 03/24/17 02:39 Labs: Laboratory Results - last 24 hr 03/24/17 03/24/17 03/24/17 02:10 02:39 02:39 WBC 8.0 RBC 5.13 Hgb 14.8 Hct 44.1 MCV 86.0 MCH 28.9 MCHC 33.6 RDW 13.1 Plt Count 208 MPV 8.7 Neut % (Auto) 70.7 Lymph % (Auto) 20.3 Patrick % (Auto) 6.1 Eos % (Auto) 2.3 Baso % (Auto) 0.6 Neut # 5.7 Lymph # 1.6 Patrick # 0.5 Eos # 0.2 Baso # 0.1 Sodium 135 Potassium 4.5 Chloride 98 Carbon Dioxide 28 Anion Gap 14 BUN 18 H Creatinine 0.7 Est GFR ( Amer) > 60 Est GFR (Non-Af Amer) > 60 Random Glucose 157 H Calcium 9.2 Total Bilirubin 1.0 AST 30 ALT 26 Alkaline Phosphatase 112 Total Protein 7.7 Albumin 4.4 Globulin 3.3 Albumin/Globulin Ratio 1.3 Urine Color Yellow Urine Clarity Clear Urine pH 5.0 Ur Specific [place] 1.026 Urine Protein 1+ H Urine Glucose (UA) Normal Urine Ketones Negative Urine Blood Negative Urine Nitrate Negative Urine Bilirubin Negative Urine Urobilinogen Normal Ur Leukocyte Esterase 1+ H Urine WBC (Auto) 12 H Urine RBC (Auto) 3 Ur Squamous Epith Cells 1 Assessment & Plan - Assessment and Plan (Free Text) Assessment: 76F w/early vs. pSBO Plan: Pain control Anti-emetic IVF NPO Serial ab exams Monitor for bowel function Will place NGT if pt becomes more distended HEVER attending Martha, PGY-1 - Date & Time Date: 03/24/17 Time: 06:14
[2017-03-24 06:44] VITALS: RESP 20
[2017-03-24] MEDS: Lactated Ringer's 1,000 ML IV SCH ×2 (08:09→17:48)
[2017-03-24 12:14] LABS: INR 0.9; PROTHROMBIN TIME 10.1 SECONDS (9.7-12.2)
--- NOTE | 2017-03-24 12:34 | CON ---
DATE: 03/24/2017 LOCATION: 371, bed A. REASON FOR CONSULTATION: I was called for GI consultation by the admitting medical team as well as the patient herself. The patient is seen and fully examined on 03/24/2017. The entire chart is reviewed including, but not limited to the most recent lab and radiology study results, current and previous medication list, current and previous medical events, allergy to medication list as well as all the available current and the previous medical records. Case discussed with the staff. HISTORY OF PRESENT ILLNESS: This is a 76-year-old female, very well known case for me from previous office visits and hospital admissions. Admitted to the hospital through the emergency room due to severe periumbilical pain within the last 24 to 36 hours with postprandial abdominal distention, loss of appetite, but no reported active bleeding, significant complaint of chest pain, palpitation or shortness of breath, but nausea with dyspepsia. No chills or fever reported. PAST MEDICAL HISTORY: Including, but not limited to: 1. Peptic ulcer disease. 2. Diverticulosis with period of diverticulitis. 3. Colon CA with colon polyps and status post partial colon resection before, reported in 2004. 4. Cholelithiasis, status post cholecystectomy. 5. Gastric ulcers. 6. Known history of hyperlipidemia, diabetes mellitus, and hypothyroidism. 7. Known history of pneumonia. 8. Status post appendectomy. 9. Last colonoscopy done about 3 years ago, as per the record also. CURRENT MEDICATIONS: Medication lists were reviewed. FAMILY HISTORY: Unknown. SOCIAL HISTORY: No reported known history of alcohol intake or cigarette smoking. ALLERGIES TO MEDICATIONS: None. LABORATORY DATA: Initial blood work done at the time of the admission showed normal CBC with increased BUN at 18, but normal creatinine. Blood glucose level elevated at 157. The patient had abdominal and pelvic CAT scan, official report is seen somewhat indicative of possible early stage suggestion of early small bowel obstruction with a liver lesion of unclear etiology. Right adnexal lesion also seen. PHYSICAL EXAMINATION: GENERAL: A 76-year-old female appeared to be awake, alert, oriented, afebrile with pulse of 66, respiratory rate 18 to 20, blood pressure of 124/66. HEENT: Showed pale, dry mucous membrane, mildly; nonicteric sclera. LYMPH NODES: No lymphadenitis or lymphadenopathy. LUNGS: Scattered crepitation. Decreased air entry bilaterally, slightly. HEART: Positive S1 and S2. ABDOMEN: Soft with [id number] distention and generalized tenderness. No mass or organomegaly. No rebound tenderness or guarding. RECTAL: Positive tone. Vault is empty. EXTREMITIES: Without significant clubbing, cyanosis, or edema. NEUROLOGIC: No reported new neurological deficits, focal, sensory or motor. VASCULAR: Peripheral pulses are present bilaterally, but weak. IMPRESSION: 1. Re-exacerbation of peptic ulcer disease. 2. Abnormal CAT scan of the abdomen and pelvis suggestive of but not confirmative of possible early stage of small bowel partial obstruction. 3. Known history of carcinoma of the colon with diverticulosis and period of diverticulitis before. 4. Known history of gastric ulcer. 5. Status post partial colon resection by history, status post cholecystectomy with appendectomy. 6. Multiple past medical history including, but not limited to hypothyroidism, diabetes mellitus with hyperlipidemia as well as pneumonia before. 7. Dehydration, mild. SUGGESTIONS: 1. Agree with your plan. 2. Cancer marker. 3. Surgical reevaluation. 4. Endoscopic evaluation of the gastrointestinal tract only when the patient is more stable clinically. 5. Proton pump inhibitors. 6. Flagyl intravenous if there is significant increase of white blood cells or/and persistent pain. Further recommendation to follow. 7. Peripheral hyperalimentation in the meantime and to keep the patient n.p.o. for now. Thank you for letting me participate in your patient's case management. Ebony Mixon MD
--- NOTE | 2017-03-24 23:26 | CP.PCM.HP ---
History of Present Illness - History of Present Illness History of Present Illness: 76 years old [place] female had 2 loose BM 4 days ago. Last night, she experienced a severe june-umbilical pain, with nausea. Denies any fever. In the ED, a CT scan of the abdomen and pelvis sugested an early small bowel obstruction. In the evening today, she had had 2 normal BM. But the abdominal still persists. She is able to tolerate clear liquid diet this evening. A similar episode of abdominal pain occured in 2016, was treated successfully with conservative management. She is known to have a NIDDM, a hypertension, and a hypothyroidism. Present on Admission - Present on Admission Any Indicators Present on Admission: No Review of Systems - Gastrointestinal Gastrointestinal: Abdominal Pain, Diarrhea, Nausea Past Patient History - Infectious Disease Hx of Infectious Diseases: None - Tetanus Immunizations Tetanus Immunization: Unknown - Past Medical History & Family History Past Medical History?: Yes - Past Social History Smoking Status: Never Smoked Alcohol: None Drugs: Denies Home Situation {Lives}: With Family Domestic Violence: Negative - CARDIAC Hx Hypercholesterolemia: Yes - PULMONARY Hx Pneumonia: Yes - NEUROLOGICAL Hx Neurological Disorder: No - HEENT Hx HEENT Problems: Yes Hx Cataracts: Yes (BIOL) - RENAL Hx Chronic Kidney Disease: No - ENDOCRINE/METABOLIC Hx Diabetes Mellitus Type 2: Yes Hx Hypothyroidism: Yes - HEMATOLOGICAL/ONCOLOGICAL Hx Blood Disorders: No - INTEGUMENTARY Hx Dermatological Problems: No - MUSCULOSKELETAL/RHEUMATOLOGICAL Hx Musculoskeletal Disorders: Yes Hx Falls: No Other/Comment: TORN LIGAMENTS BILATERAL KNEES - GASTROINTESTINAL Hx Bowel Surgery: Yes (Colon resection for a diverticulitis in [address] Belen Chahal) Hx Gall Bladder Disease: Yes Hx Gastritis: Yes - GENITOURINARY/GYNECOLOGICAL Hx Genitourinary Disorders: No - PSYCHIATRIC Hx Substance Use: No - SURGICAL HISTORY Hx Surgeries: Yes Hx Appendectomy: Yes Hx Cholecystectomy: Yes Hx Musculoskeletal Surgery: Yes (Right knee surgery for a torn ligament) Hx Thyroidectomy: Yes (in 2005) - ANESTHESIA Hx Anesthesia: Yes Hx Anesthesia Reactions: No Hx Malignant Hyperthermia: No Meds Allergies/Adverse Reactions: Allergies Allergy/AdvReac Type Severity Reaction Status Date / Time No Known Allergies Allergy Verified 03/24/17 01:58 Physical Exam - Constitutional Appears: No Acute Distress - Head Exam Head Exam: NORMAL INSPECTION - Eye Exam Eye Exam: Normal appearance Pupil Exam: NORMAL ACCOMODATION - ENT Exam ENT Exam: Normal Exam - Neck Exam Neck exam: Positive for: Normal Inspection - Respiratory Exam Respiratory Exam: Clear to Auscultation Bilateral, NORMAL BREATHING PATTERN - Cardiovascular Exam Cardiovascular Exam: REGULAR RHYTHM - GI/Abdominal Exam GI & Abdominal Exam: Hyperactive Bowel Sounds, Soft Additional comments: Mild tenderness at the periumbilical area. - Rectal Exam Rectal Exam: Deferred - Extremities Exam Extremities exam: Positive for: normal inspection - Back Exam Back exam: NORMAL INSPECTION - Neurological Exam Neurological exam: Alert, Oriented x3 - Psychiatric Exam Psychiatric exam: Anxious - Skin Skin Exam: Dry, Intact, Normal Color, Warm Results - Vital Signs Recent Vital Signs: Last Vital Signs Temp 98.2 F 03/24/17 16:26 Pulse 63 03/24/17 16:26 Resp 20 03/24/17 16:26 BP 138/62 03/24/17 16:26 Pulse Ox 97 03/24/17 16:26 - Labs Result Diagrams: 03/24/17 02:39 03/24/17 02:39 Labs: Laboratory Results - last 24 hr 03/24/17 03/24/17 03/24/17 02:10 02:39 02:39 WBC 8.0 RBC 5.13 Hgb 14.8 Hct 44.1 MCV 86.0 MCH 28.9 MCHC 33.6 RDW 13.1 Plt Count 208 MPV 8.7 Neut % (Auto) 70.7 Lymph % (Auto) 20.3 [place] % (Auto) 6.1 Eos % (Auto) 2.3 Baso % (Auto) 0.6 Neut # 5.7 Lymph # 1.6 Mora # 0.5 Eos # 0.2 Baso # 0.1 PT INR APTT Sodium 135 Potassium 4.5 Chloride 98 Carbon Dioxide 28 Anion Gap 14 BUN 18 H Creatinine 0.7 Est GFR ( Amer) > 60 Est GFR (Non-Af Amer) > 60 POC Glucose (mg/dL) Random Glucose 157 H Calcium 9.2 Total Bilirubin 1.0 AST 30 ALT 26 Alkaline Phosphatase 112 Total Protein 7.7 Albumin 4.4 Globulin 3.3 Albumin/Globulin Ratio 1.3 Alpha Fetoprotein Carcinoembryonic Ag [place] 125 Antigen Urine Color Yellow Urine Clarity Clear Urine pH 5.0 Ur Specific [place] 1.026 Urine Protein 1+ H Urine Glucose (UA) Normal Urine Ketones Negative Urine Blood Negative Urine Nitrate Negative Urine Bilirubin Negative Urine Urobilinogen Normal Ur Leukocyte Esterase 1+ H Urine WBC (Auto) 12 H Urine RBC (Auto) 3 Ur Squamous Epith Cells 1 03/24/17 03/24/17 03/24/17 07:01 11:12 11:59 WBC RBC Hgb Hct MCV MCH MCHC RDW Plt Count MPV Neut % (Auto) Lymph % (Auto) [place] % (Auto) Eos % (Auto) Baso % (Auto) Neut # Lymph # Mora # Eos # Baso # PT INR APTT Sodium Potassium Chloride Carbon Dioxide Anion Gap BUN Creatinine Est GFR ( Amer) Est GFR (Non-Af Amer) POC Glucose (mg/dL) 121 H 91 Random Glucose Calcium Total Bilirubin AST ALT Alkaline Phosphatase Total Protein Albumin Globulin Albumin/Globulin Ratio Alpha Fetoprotein 7.4 Carcinoembryonic Ag CA 125 Antigen Urine Color Urine Clarity Urine pH Ur Specific [place] Urine Protein Urine Glucose (UA) Urine Ketones Urine Blood Urine Nitrate Urine Bilirubin Urine Urobilinogen Ur Leukocyte Esterase Urine WBC (Auto) Urine RBC (Auto) Ur Squamous Epith Cells 03/24/17 03/24/17 03/24/17 11:59 11:59 16:35 WBC RBC Hgb Hct MCV MCH MCHC RDW Plt Count MPV Neut % (Auto) Lymph % (Auto) [place] % (Auto) Eos % (Auto) Baso % (Auto) Neut # Lymph # Mora # Eos # Baso # PT 10.1 INR 0.9 APTT 30 Sodium Potassium Chloride Carbon Dioxide Anion Gap BUN Creatinine Est GFR ( Amer) Est GFR (Non-Af Amer) POC Glucose (mg/dL) 83 Random Glucose Calcium Total Bilirubin AST ALT Alkaline Phosphatase Total Protein Albumin Globulin Albumin/Globulin Ratio Alpha Fetoprotein Carcinoembryonic Ag 2.4 CA 125 Antigen < 5.5 Urine Color Urine Clarity Urine pH Ur Specific [place] Urine Protein Urine Glucose (UA) Urine Ketones Urine Blood Urine Nitrate Urine Bilirubin Urine Urobilinogen Ur Leukocyte Esterase Urine WBC (Auto) Urine RBC (Auto) Ur Squamous Epith Cells 03/24/17 21:24 WBC RBC Hgb Hct MCV MCH MCHC RDW Plt Count MPV Neut % (Auto) Lymph % (Auto) [place] % (Auto) Eos % (Auto) Baso % (Auto) Neut # Lymph # Mora # Eos # Baso # PT INR APTT Sodium Potassium Chloride Carbon Dioxide Anion Gap BUN Creatinine Est GFR ( Amer) Est GFR (Non-Af Amer) POC Glucose (mg/dL) 89 Random Glucose Calcium Total Bilirubin AST ALT Alkaline Phosphatase Total Protein Albumin Globulin Albumin/Globulin Ratio Alpha Fetoprotein Carcinoembryonic Ag CA 125 Antigen Urine Color Urine Clarity Urine pH Ur Specific [place] Urine Protein Urine Glucose (UA) Urine Ketones Urine Blood Urine Nitrate Urine Bilirubin Urine Urobilinogen Ur Leukocyte Esterase Urine WBC (Auto) Urine RBC (Auto) Ur Squamous Epith Cells Assessment & Plan (1) Small bowel obstruction Assessment and Plan: Medical management as per Dr Mercer ( Surgery). Status: Acute - Date & Time Date: 03/24/17 Time: 17:00 Decision To Admit - Pt Status Changed To: Hospital Disposition Of: Inpatient - Admit Certification Admit to Inpatient:: After my assessment, the patient will require hospitalization for at least two midnights. This is because of the severity of symptoms shown, intensity of services needed, and/or the medical risk in this patient being treated as an outpatient. - InPatient: Physician Admission Certification:: After my assessments, the patient requires hospitalization for at least 2 midnights. - . Bed Request Type: Regular Admitting Physician: Kyaw Wilkes
[2017-03-25] MEDS: Lactated Ringer's 1,000 ML IV SCH ×3 (02:45→17:01)
[2017-03-25] MEDS: (Novolog) Insulin Aspart, Recombinant 100 u/ml 10 ml vial SC SCH ×4 (08:08→21:41)
--- NOTE | 2017-03-25 11:06 | PN ---
DATE: LOCATION: 371, bed A. SUBJECTIVE: This is a 76-year-old female, seen and examined in rounds. Appeared to be awake, alert, oriented with intermittent period of abdominal pain, generalized with less desire for oral intake and mild loss of appetite. The entire chart is reviewed including but not limited to the most recent lab and radiology study results, current and the previous medication list, current and the previous medical events including yesterday's CAT scan, which is indicative of possible early small bowel obstruction and liver lesion with right adnexal lesion. Today's lab showed blood glucose level of 96 and the patient has normal alpha-fetoprotein, normal CEA level and normal CA125 antigen with normal PT and PTT as well as normal CBC as per yesterday. PHYSICAL EXAMINATION: GENERAL: A 76-year-old female. VITAL SIGNS: Afebrile with pulse of 62, respiratory rate 20 to 22, blood pressure 140/74. HEENT: Showed pale dry oral mucous membrane mildly. Nonicteric sclerae. LUNGS: Few scattered crepitation. Decreased air entry at bases. HEART: Positive S1 and S2. ABDOMEN: Soft with mild generalized tenderness. No mass or organomegaly. No rebound tenderness or guarding. EXTREMITIES: Without significant edema, clubbing or cyanosis. NEUROLOGIC: No reported new neurological deficits, sensory or motor. No focal deficit. Peripheral pulses are present bilaterally and positive. IMPRESSION: 1. Abnormal CAT scan of the abdomen and pelvis with questionable early phase of small bowel obstruction, less likely. 2. Known history of cancer of the colon with status post partial colon resection, so far is stable. 3. Multiple past medical history including, but not limited to colon polyp, hyperlipidemia, hypothyroidism with reported pneumonia before and status post cholecystectomy and appendectomy. 4. Re-exacerbation of peptic ulcer disease, with known history of gastric ulcers. SUGGESTION: 1. Agree with your plan. 2. MRI of the abdomen and pelvis. 3. The patient is due for colonoscopy, followup colonoscopy due to her known history of colon cancer that could be done during this admission or to be scheduled as outpatient. Case to be discussed with the admitting MD, Dr. Kyaw Jauregui. 4. We will follow up closely with you and IV antibiotics continued. Ebony Mixon MD [facility] # [id number]
--- NOTE | 2017-03-25 12:18 | CP.PCM.PN ---
Subjective - Date & Time of Evaluation Date of Evaluation: 03/25/17 Time of Evaluation: 09:00 - Subjective Subjective: General Surgery Note for Dr. Bardales Patient seen and examined at bedside. No acute event overnight. Patient had an episode of vomiting today. She is also experiencing abdominal pain. Patient has had a BM. Patient was tolerating clear liquid diet until episode vomiting. She was instructed to take it slow with liquid and not to force it. Patient has no other complaints at this time. Objective - Vital Signs/Intake and Output Vital Signs (last 24 hours): Temp Pulse Resp BP Pulse Ox 97.9 F 59 L 20 149/78 97 03/25/17 08:00 03/25/17 08:00 03/25/17 08:00 03/25/17 08:00 03/25/17 08:00 Intake and Output: 03/25/17 03/25/17 06:59 18:59 Intake Total 920 Balance 920 - Medications Medications: Current Medications Docusate Sodium (Colace) [address] [facility] Last Admin: 03/25/17 10:02 Dose: 100 mg Lactated Ringer's (Lactated Ringer's) 1,000 mls @ 100 mls/hr IV .Q10H [facility] Last Admin: 03/25/17 05:10 Dose: 100 mls/hr Insulin Aspart (Novolog) [address] [facility] PRN Reason: Protocol Last Admin: 03/25/17 08:08 Dose: Not Given Ketorolac Tromethamine (Toradol) 30 mg IVP Q6 PRN PRN Reason: Pain, moderate (4-7) Metoclopramide HCl (Reglan) [address] [facility] Last Admin: 03/25/17 11:39 Dose: 5 mg Morphine Sulfate (Morphine) 2 mg IVP Q4 PRN PRN Reason: Pain, severe (8-10) Last Admin: 03/25/17 03:05 Dose: 2 mg Ondansetron HCl (Zofran Inj) 4 mg IVP Q4H PRN PRN Reason: Nausea/Vomiting Pantoprazole Sodium (Protonix Inj) [address] [facility] Last Admin: 03/25/17 11:35 Dose: 40 mg - Labs Labs: 03/24/17 02:39 03/24/17 02:39 PT 10.1 SECONDS (9.7-12.2) 03/24/17 11:59 INR 0.9 03/24/17 11:59 APTT 30 SECONDS (21-34) 03/24/17 11:59 - Constitutional Appears: No Acute Distress - Head Exam Head Exam: NORMOCEPHALIC - Eye Exam Eye Exam: Normal appearance - ENT Exam ENT Exam: Mucous Membranes Moist - Respiratory Exam Respiratory Exam: NORMAL BREATHING PATTERN - Cardiovascular Exam Cardiovascular Exam: REGULAR RHYTHM - GI/Abdominal Exam GI & Abdominal Exam: Soft, Tenderness, Normal Bowel Sounds. absent: Distended, Firm, Guarding, Rigid - Neurological Exam Neurological Exam: Alert, Awake, Oriented x3 - Psychiatric Exam Psychiatric exam: Normal Affect, Normal Mood - Skin Skin Exam: Dry, Intact, Normal Color, Warm Assessment and Plan - Assessment and Plan (Free Text) Plan: 76 F with partial SBO -CLD, ADAT -Analgesics/Anti-emetics PRN -Serial Abdominal exams -Monitor Bowel function -Discussed with Dr. Catia Pérez PGY1
--- NOTE | 2017-03-25 15:00 | CP.PCM.PN ---
Subjective - Date & Time of Evaluation Date of Evaluation: 03/25/17 Time of Evaluation: 14:59 - Subjective Subjective: PT SEEN BY DR. SINGH. PER DR. SINGH PT TO BE CHANGED TO INPATIENT--ORDER DONE. PT STILL ON ONLY A LIQUID DIET AND HAD VOMITING THIS MORNING. MEDS ADJUSTED BY GI. POSS D/C TOMORROW IF PT'S SYMPTOMS RESOLVE. Objective - Vital Signs/Intake and Output Vital Signs (last 24 hours): Temp Pulse Resp BP Pulse Ox 97.9 F 59 L 20 149/78 97 03/25/17 08:00 03/25/17 08:00 03/25/17 08:00 03/25/17 08:00 03/25/17 08:00 Intake and Output: 03/25/17 03/25/17 06:59 18:59 Intake Total 920 1040 Balance 920 1040 - Medications Medications: Current Medications Docusate Sodium (Colace) 100 mg PO DAILY [facility] Last Admin: 03/25/17 10:02 Dose: 100 mg Lactated Ringer's (Lactated Ringer's) 1,000 mls @ 100 mls/hr IV .Q10H [facility] Last Admin: 03/25/17 05:10 Dose: 100 mls/hr Insulin Aspart (Novolog) 0 unit SC ACHS [facility] PRN Reason: Protocol Last Admin: 03/25/17 12:33 Dose: Not Given Ketorolac Tromethamine (Toradol) 30 mg IVP Q6 PRN PRN Reason: Pain, moderate (4-7) Metoclopramide HCl (Reglan) 5 mg IVP Q6 [facility] Last Admin: 03/25/17 11:39 Dose: 5 mg Morphine Sulfate (Morphine) 2 mg IVP Q4 PRN PRN Reason: Pain, severe (8-10) Last Admin: 03/25/17 03:05 Dose: 2 mg Ondansetron HCl (Zofran Inj) 4 mg IVP Q4H PRN PRN Reason: Nausea/Vomiting Pantoprazole Sodium (Protonix Inj) 40 mg IVP Q12H [facility] Last Admin: 03/25/17 11:35 Dose: 40 mg - Labs Labs: 03/24/17 02:39 03/24/17 02:39 PT 10.1 SECONDS (9.7-12.2) 01/02/18 11:59 INR 0.9 03/24/17 11:59 APTT 30 SECONDS (21-34) 03/24/17 11:59
--- NOTE | 2017-03-25 23:51 | CP.PCM.PN ---
Subjective - Date & Time of Evaluation Date of Evaluation: 03/25/17 Time of Evaluation: 14:00 - Subjective Subjective: Patient still had abdominal and vomting this AM. Was given IV Metoclopramide IV by Dr Palencia. Objective - Vital Signs/Intake and Output Vital Signs (last 24 hours): Temp Pulse Resp BP Pulse Ox 98.3 F 66 20 145/74 97 03/25/17 16:00 03/25/17 16:00 03/25/17 16:00 03/25/17 16:00 03/25/17 16:00 Intake and Output: 03/25/17 03/26/17 18:59 06:59 Intake Total 1040 1150 Balance 1040 1150 - Medications Medications: Current Medications Docusate Sodium (Colace) 100 mg PO DAILY [facility] Last Admin: 03/25/17 10:02 Dose: 100 mg Enoxaparin Sodium (Lovenox) 40 mg SC DAILY [facility] Lactated Ringer's (Lactated Ringer's) 1,000 mls @ 100 mls/hr IV .Q10H [facility] Last Admin: 03/25/17 17:01 Dose: 100 mls/hr Insulin Aspart (Novolog) 0 unit SC ACHS [facility] PRN Reason: Protocol Last Admin: 03/25/17 21:41 Dose: Not Given Metoclopramide HCl (Reglan) 5 mg IVP Q6 [facility] Last Admin: 03/25/17 18:04 Dose: 5 mg Morphine Sulfate (Morphine) 2 mg IVP Q4 PRN PRN Reason: Pain, severe (8-10) Last Admin: 03/25/17 03:05 Dose: 2 mg Ondansetron HCl (Zofran Inj) 4 mg IVP Q4H PRN PRN Reason: Nausea/Vomiting Pantoprazole Sodium (Protonix Inj) 40 mg IVP Q12H [facility] Last Admin: 03/25/17 11:35 Dose: 40 mg - Labs Labs: 03/24/17 02:39 03/24/17 02:39 PT 10.1 SECONDS (9.7-12.2) 03/24/17 11:59 INR 0.9 03/24/17 11:59 APTT 30 SECONDS (21-34) 03/24/17 11:59 - Constitutional Appears: No Acute Distress - Head Exam Head Exam: NORMAL INSPECTION - Eye Exam Eye Exam: Normal appearance - ENT Exam ENT Exam: Normal Exam - Neck Exam Neck Exam: Normal Inspection - Respiratory Exam Respiratory Exam: Clear to Ausculation Bilateral, NORMAL BREATHING PATTERN - Cardiovascular Exam Cardiovascular Exam: REGULAR RHYTHM - GI/Abdominal Exam GI & Abdominal Exam: Soft, Hyperactive Bowel Sounds - Rectal Exam Rectal Exam: Deferred - Exam Exam: NORMAL INSPECTION - Extremities Exam Extremities Exam: Normal Inspection - Back Exam Back Exam: NORMAL INSPECTION - Neurological Exam Neurological Exam: Alert, Awake, Oriented x3 - Psychiatric Exam Psychiatric exam: Anxious - Skin Skin Exam: Dry, Urticaria Assessment and Plan (1) Small bowel obstruction Assessment & Plan: Still with abdominal pain and nausea, vomiting. Status: Acute
[2017-03-26] MEDS: Lactated Ringer's 1,000 ML IV SCH ×2 (02:19→12:27)
[2017-03-26] MEDS: (Novolog) Insulin Aspart, Recombinant 100 u/ml 10 ml vial SC SCH ×4 (07:30→22:07)
--- NOTE | 2017-03-26 08:25 | CP.PCM.PN ---
Subjective - Date & Time of Evaluation Date of Evaluation: 03/26/17 Time of Evaluation: 07:00 - Subjective Subjective: General Surgery Note for Dr. Bardales Patient seen and examined at bedside in the AM. No acute event overnight. Patient states she has not had an episode of vomiting since yesterday. She denies abdominal pain. Patient had a bowel movement yesterday and continues to pass gas. Patient is tolerating clear liquid diet. Patient has no other complaints at this time. Objective - Vital Signs/Intake and Output Vital Signs (last 24 hours): Temp Pulse Resp BP Pulse Ox 98 F 67 20 149/69 97 03/26/17 00:02 03/26/17 00:02 03/26/17 00:02 03/26/17 00:02 03/26/17 00:02 Intake and Output: 03/26/17 03/26/17 06:59 18:59 Intake Total 1150 Balance 1150 - Medications Medications: Current Medications Docusate Sodium (Colace) 100 mg PO DAILY [facility] Last Admin: 03/25/17 10:02 Dose: 100 mg Enoxaparin Sodium (Lovenox) 40 mg SC DAILY [facility] Lactated Ringer's (Lactated Ringer's) 1,000 mls @ 100 mls/hr IV .Q10H [facility] Last Admin: 03/26/17 02:19 Dose: 100 mls/hr Insulin Aspart (Novolog) 0 unit SC ACHS [facility] PRN Reason: Protocol Last Admin: 03/25/17 21:41 Dose: Not Given Metoclopramide HCl (Reglan) 5 mg IVP Q6 [facility] Last Admin: 03/26/17 06:10 Dose: 5 mg Morphine Sulfate (Morphine) 2 mg IVP Q4 PRN PRN Reason: Pain, severe (8-10) Last Admin: 03/25/17 03:05 Dose: 2 mg Ondansetron HCl (Zofran Inj) 4 mg IVP Q4H PRN PRN Reason: Nausea/Vomiting Pantoprazole Sodium (Protonix Inj) 40 mg IVP Q12H [facility] Last Admin: 03/25/17 23:55 Dose: 40 mg - Labs Labs: 03/24/17 02:39 03/24/17 02:39 PT 10.1 SECONDS (9.7-12.2) 03/24/17 11:59 INR 0.9 03/24/17 11:59 APTT 30 SECONDS (21-34) 03/24/17 11:59 - Constitutional Appears: No Acute Distress - Head Exam Head Exam: ATRAUMATIC, NORMAL INSPECTION - Eye Exam Eye Exam: Normal appearance - ENT Exam ENT Exam: Mucous Membranes Moist - Respiratory Exam Respiratory Exam: NORMAL BREATHING PATTERN - Cardiovascular Exam Cardiovascular Exam: +S1, +S2 - GI/Abdominal Exam GI & Abdominal Exam: Soft, Normal Bowel Sounds. absent: Tenderness - Extremities Exam Extremities Exam: Normal Inspection - Neurological Exam Neurological Exam: Alert, Awake, Oriented x3 - Psychiatric Exam Psychiatric exam: Normal Affect, Normal Mood - Skin Skin Exam: Normal Color, Warm Assessment and Plan - Assessment and Plan (Free Text) Assessment: 76 year old female with partial SBO - Advanced diet to soft - Analgesics/Anti-emetics PRN - Monitor Bowel function - No surgical intervention needed at this time Elvira Kumar, PGY-1
[2017-03-26] MEDS: Enoxaparin 40 mg Syringe SC SCH (09:23)
--- NOTE | 2017-03-26 13:25 | PN ---
DATE: LOCATION: 371 bed A. SUBJECTIVE: This is a 76-year-old female seen and examined in rounds. Appeared to be awake, alert, oriented with much less abdominal pain, tolerating bowel movement well without reported nausea or vomiting, had bowel movement recently. The patient tolerated oral intake well. The entire chart is reviewed including, but not limited to most recent lab and radiology study results, current and the previous medication list, current and the previous medical events, and latest blood glucose level measured at 96. PHYSICAL EXAMINATION GENERAL: This is a 76-year-old female. VITAL SIGNS: Afebrile with pulse of 66, respiratory rate 20 to 22, and blood pressure of 138/72. HEENT: Showed pale dry oral mucous membrane mildly. Nonicteric sclerae. LUNGS: Few scattered mild crepitation. Breathing sounds are present bilaterally. HEART: Positive S1 and S2. ABDOMEN: Soft with slight distention and slight tenderness. No mass or organomegaly. No rebound tenderness or guarding. EXTREMITIES: Without significant clubbing, cyanosis, or edema. NEUROLOGIC: No reported new neurological deficits, sensory or motor. No focal deficit. Peripheral pulses are present bilaterally. IMPRESSION: 1. Recently reported possible early small bowel obstruction, subsided. 2. Exacerbation of peptic ulcer disease. 3. Known history of colon cancer with partial colon resection by history. 4. Known history of pneumonia, hypothyroidism with hyperlipidemia with status post appendectomy and cholecystectomy. SUGGESTIONS: 1. Agree with your plan. 2. Advance high-fiber diet, no citrus, no seeds. 3. Antireflux measure. 4. This is a patient with known history of colon cancer. Followup colonoscopy is rescheduled, that could be done as outpatient. Ebony Mixon MD
--- NOTE | 2017-03-26 21:20 | CP.PCM.PN ---
Subjective - Date & Time of Evaluation Date of Evaluation: 03/26/17 Time of Evaluation: 21:18 - Subjective Subjective: Patient has no complaint, is tolerating soft diet well. Will discontinue IVF and discharge patient home in AM. Objective - Vital Signs/Intake and Output Vital Signs (last 24 hours): Temp Pulse Resp BP Pulse Ox 98.8 F 65 20 156/77 H 96 03/26/17 16:00 03/26/17 18:30 03/26/17 16:00 03/26/17 18:30 03/26/17 16:00 Intake and Output: 03/26/17 03/27/17 18:59 06:59 Intake Total 1480 Balance 1480 - Medications Medications: Current Medications Docusate Sodium (Colace) 100 mg PO DAILY [facility] Last Admin: 03/26/17 09:20 Dose: 100 mg Enoxaparin Sodium (Lovenox) 40 mg SC DAILY [facility] Last Admin: 03/26/17 09:23 Dose: 40 mg Lactated Ringer's (Lactated Ringer's) 1,000 mls @ 100 mls/hr IV .Q10H [facility] Last Admin: 03/26/17 12:27 Dose: 100 mls/hr Insulin Aspart (Novolog) 0 unit SC ACHS [facility] PRN Reason: Protocol Last Admin: 03/26/17 18:15 Dose: Not Given Ketorolac Tromethamine (Toradol) 10 mg PO Q6 PRN PRN Reason: Pain, moderate (4-7) Metoclopramide HCl (Reglan) 5 mg IVP Q6 [facility] Last Admin: 03/26/17 18:14 Dose: 5 mg Morphine Sulfate (Morphine) 2 mg IVP Q4 PRN PRN Reason: Pain, severe (8-10) Last Admin: 03/25/17 03:05 Dose: 2 mg Ondansetron HCl (Zofran Inj) 4 mg IVP Q4H PRN PRN Reason: Nausea/Vomiting Pantoprazole Sodium (Protonix Inj) 40 mg IVP Q12H [facility] Last Admin: 03/26/17 11:30 Dose: 40 mg - Labs Labs: 03/24/17 02:39 03/24/17 02:39 PT 10.1 SECONDS (9.7-12.2) 03/24/17 11:59 INR 0.9 03/24/17 11:59 APTT 30 SECONDS (21-34) 03/24/17 11:59 - Head Exam Head Exam: NORMAL INSPECTION - Eye Exam Eye Exam: Normal appearance - ENT Exam ENT Exam: Normal Exam - Neck Exam Neck Exam: Normal Inspection - Respiratory Exam Respiratory Exam: Clear to Ausculation Bilateral, NORMAL BREATHING PATTERN - Cardiovascular Exam Cardiovascular Exam: REGULAR RHYTHM - GI/Abdominal Exam GI & Abdominal Exam: Soft, Normal Bowel Sounds - Rectal Exam Rectal Exam: Deferred - Extremities Exam Extremities Exam: Normal Capillary Refill, Normal Inspection - Back Exam Back Exam: NORMAL INSPECTION - Neurological Exam Neurological Exam: Alert, Awake, Normal Gait, Oriented x3 - Psychiatric Exam Psychiatric exam: Anxious - Skin Skin Exam: Dry, Intact, Normal Color, Warm Assessment and Plan (1) Small bowel obstruction Status: Resolved
[2017-03-27] MEDS: (Novolog) Insulin Aspart, Recombinant 100 u/ml 10 ml vial SC SCH ×2 (07:45→11:40)
[2017-03-27 08:08] VITALS: BP 144/73; PULSE 66; TEMP 98.1; O2SAT 95
[2017-03-27] MEDS: Enoxaparin 40 mg Syringe SC SCH (09:19)
--- NOTE | 2017-03-27 10:27 | CP.PCM.PN ---
Subjective - Date & Time of Evaluation Date of Evaluation: 03/27/17 Time of Evaluation: 07:05 - Subjective Subjective: General Surgery Note for Dr. Bardales Patient seen and examined at bedside. No acute event overnight. Patient states pain has improved. She is feeling much better. Denies nausea/vomiting. She had a normal BM. She is tolerating diet. No complaints at this time. Objective - Vital Signs/Intake and Output Vital Signs (last 24 hours): Temp Pulse Resp BP Pulse Ox 98.1 F 66 20 144/73 95 03/27/17 08:07 03/27/17 08:07 03/27/17 08:07 03/27/17 08:07 03/27/17 08:07 Intake and Output: 03/27/17 03/27/17 06:59 18:59 Intake Total 1100 Balance 1100 - Medications Medications: Current Medications Docusate Sodium (Colace) 100 mg PO DAILY [facility] Last Admin: 03/27/17 09:19 Dose: 100 mg Enoxaparin Sodium (Lovenox) 40 mg SC DAILY [facility] Last Admin: 03/27/17 09:19 Dose: Not Given Insulin Aspart (Novolog) 0 unit SC ACHS [facility] PRN Reason: Protocol Last Admin: 03/27/17 07:45 Dose: Not Given Ketorolac Tromethamine (Toradol) 10 mg PO Q6 PRN PRN Reason: Pain, moderate (4-7) Metoclopramide HCl (Reglan) 5 mg IVP Q6 [facility] Last Admin: 03/27/17 06:06 Dose: Not Given Morphine Sulfate (Morphine) 2 mg IVP Q4 PRN PRN Reason: Pain, severe (8-10) Last Admin: 03/25/17 03:05 Dose: 2 mg Ondansetron HCl (Zofran Inj) 4 mg IVP Q4H PRN PRN Reason: Nausea/Vomiting Pantoprazole Sodium (Protonix Inj) 40 mg IVP Q12H [facility] Last Admin: 03/26/17 23:50 Dose: 40 mg - Labs Labs: 03/24/17 02:39 03/24/17 02:39 PT 10.1 SECONDS (9.7-12.2) 03/24/17 11:59 INR 0.9 03/24/17 11:59 APTT 30 SECONDS (21-34) 03/24/17 11:59 - Constitutional Appears: No Acute Distress - Head Exam Head Exam: ATRAUMATIC, NORMOCEPHALIC - Eye Exam Eye Exam: EOMI, Normal appearance Pupil Exam: PERRL - ENT Exam ENT Exam: Mucous Membranes Moist - Respiratory Exam Respiratory Exam: NORMAL BREATHING PATTERN - Cardiovascular Exam Cardiovascular Exam: REGULAR RHYTHM - GI/Abdominal Exam GI & Abdominal Exam: Soft, Normal Bowel Sounds. absent: Distended, Firm, Guarding, Rigid, Tenderness, Rebound - Extremities Exam Extremities Exam: Normal Capillary Refill - Neurological Exam Neurological Exam: Alert, Awake, Oriented x3 - Psychiatric Exam Psychiatric exam: Normal Affect, Normal Mood - Skin Skin Exam: Dry, Intact, Normal Color, Warm Assessment and Plan - Assessment and Plan (Free Text) Plan: 76 F with partial SBO - Regular diet - No surgical intervention needed at this time - Clear for discharge from surgical standpoint Bryce Pérez PGY1
--- NOTE | 2017-03-27 16:37 | PN ---
DATE: LOCATION: [facility], bed A. SUBJECTIVE: This is a 76-year-old female seen and examined in rounds early in the morning. The entire chart is reviewed including but not limited to the most recent lab and radiology study results, current and the previous medication list, current and the previous medical events. LABORATORY DATA: Today's lab showed blood glucose level of 85. Case discussed with the staff at length. The patient denied any shortness of breath, chest pain, palpitation, but less abdominal pain. No reported active bleeding. No reported chills or fever. PHYSICAL EXAMINATION: GENERAL: A 76-year-old female, awake, alert, oriented. VITAL SIGNS: Afebrile with pulse of 64, respiratory rate 20-22, blood pressure 140/70. HEENT: Showed pale, dry oral mucous membrane. Nonicteric sclerae. LUNGS: Scattered crepitation, decreased air entry at bases. HEART: Positive S1 and S2. ABDOMEN: Soft. Bowel sounds are present. No mass or organomegaly. No rebound tenderness or guarding. EXTREMITIES: Without significant edema, clubbing, or cyanosis. NEUROLOGIC: No reported new neurological deficits, sensory or motor. IMPRESSION: 1. Reported recent history of early small bowel obstruction, subsided. The patient tolerating oral intake well. 2. Re-exacerbation of peptic ulcer disease. 3. Known history of colon polyp, removed. 4. History of hypothyroidism, hypertension, pneumonia, status post cholecystectomy and appendectomy. SUGGESTIONS: 1. Continue current management. 2. Adjust oral intake, no citrus, no seeds. 3. If the patient then Flagyl p.o. to be continued. 4. Further examination to follow. Ebony Mixon MD
--- NOTE | 2017-03-29 16:25 | CP.PCM.DIS ---
Provider - Provider Date of Admission: 03/25/17 14:58 Attending physician: Kyaw Wilkes MD Primary care physician: Kyaw Wilkes M.D. Consults: Dr. Ebony Palencia ( outgoing inspector), Dr. Eagle Mercer ( Surgery). Time Spent in preparation of Discharge (in minutes): 30 Diagnosis - Discharge Diagnosis (1) Partial small bowel obstruction Status: Acute Hospital Course - Lab Results Lab Results: Most Recent Lab Values WBC 8.0 K/uL (4.8-10.8) 03/24/17 02:39 RBC 5.13 Mil/uL (3.80-5.20) 03/24/17 02:39 Hgb 14.8 g/dL (11.0-16.0) 03/24/17 02:39 Hct 44.1 % (34.0-47.0) 03/24/17 02:39 MCV 86.0 fL (81.0-99.0) 03/24/17 02:39 MCH 28.9 pg (27.0-31.0) 03/24/17 02:39 MCHC 33.6 g/dL (33.0-37.0) 03/24/17 02:39 RDW 13.1 % (11.5-14.5) 03/24/17 02:39 Plt Count 208 K/uL (130-400) 03/24/17 02:39 MPV 8.7 fL (7.2-11.7) 03/24/17 02:39 Neut % (Auto) 70.7 % (50.0-75.0) 03/24/17 02:39 Lymph % (Auto) 20.3 % (20.0-40.0) 03/24/17 02:39 [place] % (Auto) 6.1 % (0.0-10.0) 03/24/17 02:39 Eos % (Auto) 2.3 % (0.0-4.0) 03/24/17 02:39 Baso % (Auto) 0.6 % (0.0-2.0) 03/24/17 02:39 Neut # 5.7 K/uL (1.8-7.0) 03/24/17 02:39 Lymph # 1.6 K/uL (1.0-4.3) 03/24/17 02:39 [place] # 0.5 K/uL (0.0-0.8) 03/24/17 02:39 Eos # 0.2 K/uL (0.0-0.7) 03/24/17 02:39 Baso # 0.1 K/uL (0.0-0.2) 03/24/17 02:39 PT 10.1 SECONDS (9.7-12.2) 03/24/17 11:59 INR 0.9 03/24/17 11:59 APTT 30 SECONDS (21-34) 03/24/17 11:59 Sodium 135 mmol/L (132-148) 03/24/17 02:39 Potassium 4.5 mmol/L (3.6-5.2) 03/24/17 02:39 Chloride 98 mmol/L (98-107) 03/24/17 02:39 Carbon Dioxide 28 mmol/L (22-30) 03/24/17 02:39 Anion Gap 14 (10-20) 03/24/17 02:39 BUN 18 mg/dL (7-17) H 03/24/17 02:39 Creatinine 0.7 mg/dL (0.7-1.2) 03/24/17 02:39 Est GFR ( Amer) > 60 03/24/17 02:39 Est GFR (Non-Af Amer) > 60 03/24/17 02:39 POC Glucose (mg/dL) 85 mg/dL (65-110) 03/27/17 11:07 Random Glucose 157 mg/dL (65-105) H 03/24/17 02:39 Calcium 9.2 mg/dl (8.6-10.4) 03/24/17 02:39 Total Bilirubin 1.0 mg/dL (0.2-1.3) 03/24/17 02:39 AST 30 U/L (14-36) 03/24/17 02:39 ALT 26 U/L (9-52) 03/24/17 02:39 Alkaline Phosphatase 112 U/L (38-126) 03/24/17 02:39 Total Protein 7.7 g/dL (6.3-8.3) 03/24/17 02:39 Albumin 4.4 g/dL (3.5-5.0) 03/24/17 02:39 Globulin 3.3 gm/dL (2.2-3.9) 03/24/17 02:39 Albumin/Globulin Ratio 1.3 (1.0-2.1) 03/24/17 02:39 Alpha Fetoprotein 7.4 ng/mL (0.0-7.5) 03/24/17 11:59 Carcinoembryonic Ag 2.4 ng/mL (0-3.0) 03/24/17 11:59 CA 125 Antigen < 5.5 U/mL (0-35) 03/24/17 11:59 Urine Color Yellow (YELLOW) 03/24/17 02:10 Urine Clarity Clear (Clear) 03/24/17 02:10 Urine pH 5.0 (5.0-8.0) 03/24/17 02:10 Ur Specific [place] 1.026 (1.003-1.030) 03/24/17 02:10 Urine Protein 1+ mg/dL (NEGATIVE) H 03/24/17 02:10 Urine Glucose (UA) Normal mg/dL (Normal) 03/24/17 02:10 Urine Ketones Negative mg/dL (NEGATIVE) 03/24/17 02:10 Urine Blood Negative (NEGATIVE) 03/24/17 02:10 Urine Nitrate Negative (NEGATIVE) 03/24/17 02:10 Urine Bilirubin Negative (NEGATIVE) 03/24/17 02:10 Urine Urobilinogen Normal mg/dL (0.2-1.0) 03/24/17 02:10 Ur Leukocyte Esterase 1+ Bernardo/uL (Negative) H 03/24/17 02:10 Urine WBC (Auto) 12 /hpf (0-5) H 03/24/17 02:10 Urine RBC (Auto) 3 /hpf (0-3) 03/24/17 02:10 Ur Squamous Epith Cells 1 /hpf (0-5) 03/24/17 02:10 - Hospital Course Hospital Course: 76 years old Female complaining of a june-umbilical pain with nausea and vomiting for one day. Known to have a hypertension, a hypothyroidism, a non- insulin dependent diabetes mellitus, a s/p colectomy in 2006 for a colonic diverticulitis, a CT scan of the abdomen and pelvis on admission revealed an early small bowel obstruction. The patient was evaluated by Dr Palencia( GI), and Dr. Mercer ( Surgery) who suggested medical and conservative management. The patient was kept in NPO, and was given IVF. Her symptoms gradually improved. Her diet was advanced slowly to a soft diet. She became asymptomatic, and discharged home on 03/27/2017 in a stable condition. She will continue her home medications, and will have a follow up with Dr Palencia and Dr Mercer in about a week. - Date & Time of H&P Date of H&P: 03/24/17 Discharge Exam - Head Exam Head Exam: ATRAUMATIC, NORMOCEPHALIC - Eye Exam Eye Exam: Normal appearance - ENT Exam ENT Exam: Normal Exam - Neck Exam Neck exam: Normal Inspection - Respiratory Exam Respiratory Exam: Clear to PA & Lateral, NORMAL BREATHING PATTERN - Cardiovascular Exam Cardiovascular Exam: REGULAR RHYTHM - GI/Abdominal Exam GI & Abdominal Exam: Normal Bowel Sounds, Soft, Unremarkable - Rectal Exam Rectal Exam: Deferred - Extremities Exam Extremities exam: normal inspection - Back Exam Back exam: NORMAL INSPECTION - Neurological Exam Neurological exam: Alert, Normal Gait, Oriented x3 - Psychiatric Exam Psychiatric exam: Anxious - Skin Skin Exam: Dry, Intact, Normal Color, Warm Discharge Plan - Follow Up Plan Condition: FAIR Disposition: HOME/ ROUTINE Instructions: Abdominal Pain (ED), Bowel Obstruction (DC) Additional Instructions: FOLLOW UP WITH DR. WILKES IN THE OFFICE WITHIN 5-7 DAYS OF DISCHARGE---CALL THE OFFICE TO MAKE YOUR APPT. FOLLOW UP WITH DR. PALENCIA (STOMACH DOCTOR) IN THE OFFICE WITHIN 10-14 DAYS OF DISCHARGE---CALL THE OFFICE TO MAKE YOUR APPT. CONTINUE YOUR MEDICATIONS USUAL. FOR FURTHER CONCERNS OR QUESTIONS, CONTACT DR. WILKES'S OFFICE. Referrals: Ebony Palencia [Staff Provider] - Eagle Bardales Jr., MD [Staff Provider] - Kyaw Wilkes MD [Staff Provider] -
== END 2017-03-27 14:57 | disposition home or self-care (01) | DRG 389 ==
LOC: C.ER 01:46 → C.9E 05:37 → C.3T 05:50 → OBSVTOIN 03-25 14:58
PROVIDERS: ADMIT Internal Medicine Cardiovascular Disease; ATTEND Internal Medicine Cardiovascular Disease
DX: K56.600 Partial intestinal obstruction, unspecified as to cause (principal); K27.3 Acute peptic ulcer, site unspecified, without hemorrhage or perforation; E86.0 Dehydration; E11.9 Type 2 diabetes mellitus without complications; E03.9 Hypothyroidism, unspecified; E78.00 Pure hypercholesterolemia, unspecified; I10 Essential (primary) hypertension; Z79.84 Long term (current) use of oral hypoglycemic drugs; Z85.038 Personal history of other malignant neoplasm of large intestine; Z86.010 Personal history of colon polyps; Z87.01 Personal history of pneumonia (recurrent); Z87.11 Personal history of peptic ulcer disease

== ENCOUNTER 2017-04-08 01:35 | Inpatient (IN) | payer MEDICARE ==
[2017-04-08 01:35] VITALS: BMI 25.4
--- NOTE | 2017-04-08 01:59 | C.PDOC ---
History Of Present Illness The patient presents to the ED for evaluation of lower abdominal pain which began at around 1600 yesterday. She also reports constipation and states she took Nexium without relief. Patient was recently seen in the ED on 03/25 for partial small bowel obstruction. Patient denies fever, chills, nausea, vomiting. Time Seen by Provider: 04/08/17 01:59 Chief Complaint (Nursing): Abdominal Pain History Per: Patient History/Exam Limitations: no limitations Onset/Duration Of Symptoms: Hrs Current Symptoms Are (Timing): Still Present Severity: Moderate Pain Scale Rating Of: 4 Location Of Pain/Discomfort: Other (lower abdomen ) Radiation Of Pain To:: None Quality Of Discomfort: Dull, Aching, Cramping, "Pain" Associated Symptoms: Constipation. denies: Fever, Chills, Nausea, Vomiting Exacerbating Factors: None Alleviating Factors: None Last Bowel Movement: Today Recent travel outside of the [place] States: No Additional History Per: Patient Abnormal Vaginal Bleeding: No Past Medical History Reviewed: Historical Data, Nursing Documentation, Vital Signs Vital Signs: Last Vital Signs Temp 98.1 F 04/08/17 01:47 Pulse 76 04/08/17 01:47 Resp 22 04/08/17 01:47 BP 164/89 H 04/08/17 01:47 Pulse Ox 97 04/08/17 03:33 - Medical History PMH: Colonic Polyps, Diabetes, Gastritis, Gastrointestinal Ulcer, Gall Bladder Disease, Hypercholesterolemia, Hypothyroidism, 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), Pneumonia Denies: Chronic Kidney Disease Surgical History: Appendectomy, Cholecystectomy, Endoscopy - [facility] CHOLECYSTECTOMY (06/03/13) CLOSED ENDOSCOPIC BIOPSY OF LARGE INTESTINE (06/06/14) COLONOSCOPY (10/26/12) ESOPHAGOGASTRODUODENOSCOPY [EGD] W/CLOSED BIOPSY (01/31/14) EXCISION OF STOMACH, ENDO, DIAGN (02/26/16) Family History: States: Unknown Family Hx - Social History Hx Tobacco Use: No Hx Alcohol Use: No Hx Substance Use: No - Immunization History Hx Tetanus Toxoid Vaccination: No Hx Influenza Vaccination: Yes Hx Pneumococcal Vaccination: Yes Review Of Systems Constitutional: Negative for: Fever, Chills Cardiovascular: Negative for: Chest Pain Gastrointestinal: Positive for: Abdominal Pain, Constipation. Negative for: Nausea, Vomiting, Diarrhea Skin: Negative for: Rash, Lesions, Jaundice, Bruising Neurological: Negative for: Weakness, Numbness Physical Exam - Physical Exam Appears: Non-toxic, No Acute Distress Skin: Warm, Dry Head: Normacephalic Eye(s): bilateral: Normal Inspection Oral Mucosa: Moist Neck: Supple Chest: Symmetrical, No Deformity, No Tenderness Cardiovascular: Rhythm Regular, No Murmur Respiratory: No Rales, No Rhonchi, No Wheezing Gastrointestinal/Abdominal: Soft, Tenderness (mild, diffuse ), No Guarding, No Rebound, Other (tympanic to percussion ) Back: Normal Inspection Extremity: Normal ROM, Capillary Refill (less than 2 seconds ) Extremity: Bilateral: Atraumatic Pulses: Left Dorsalis Pedis: Normal, Right Dorsalis Pedis: Normal Neurological/Psych: Oriented x3 Gait: Steady ED Course And Treatment - Laboratory Results Result Diagrams: 04/08/17 02:51 04/08/17 02:51 O2 Sat by Pulse Oximetry: 97 (on RA) Pulse Ox Interpretation: Normal - Radiology CXR: Interpreted by Me, Viewed By Me CXR Interpretation: No: Infiltrates, Fracture, Pnemothorax - Other Rad obstr X-Ray: Interpreted by Me, Viewed By Me Interpretation: mild ileus,no obstr, no free air Progress Note: Bloodwork, urinalysis, obstructive series abdomen ordered and reviewed. Pepcid IVP administered. Disposition Discussed With DrEvelyne: Kyaw Wilkes Comment: accepted the pt on his service and took over the care at 3:47 AM Doctor Will See Patient In The: Hospital Counseled Patient/Family Regarding: Studies Performed, Diagnosis - Disposition Disposition: HOSPITALIZED Disposition Time: 01:59 Condition: FAIR Forms: [facility] (Citizen Of [place]) - Clinical Impression Clinical Impression: Abdominal pain, Nausea, Ileus - Scribe Statement The provider has reviewed the documentation as recorded by the Scribe (Anna Thompson) Provider Attestation: All medical record entries made by the Scribe were at my direction and personally dictated by me. I have reviewed the chart and agree that the record accurately reflects my personal performance of the history, physical exam, medical decision making, and the department course for this patient. I have also personally directed, reviewed, and agree with the discharge instructions and disposition. Decision To Admit - Pt Status Changed To: Hospital Disposition Of: Inpatient - Admit Certification Admit to Inpatient:: After my assessment, the patient will require hospitalization for at least two midnights. This is because of the severity of symptoms shown, intensity of services needed, and/or the medical risk in this patient being treated as an outpatient. - InPatient: Physician Admission Certification:: After my assessment, the patient will require hospitalization for at least two midnights. This is because of the severity of symptoms shown, intensity of services needed, and/or the medical risk in this patient being treated as an outpatient. - . Bed Request Type: Regular Admitting Physician: Kyaw Wilkes Patient Diagnosis: Abdominal pain, Nausea, Ileus
[2017-04-08 03:01] LABS: BASO % 0.4 % (0.0-2.0); EOS # 0.2 K/uL (0.0-0.7); EOS % 1.8 % (0.0-4.0); HEMOGLOBIN 14.3 g/dL (11.0-16.0); LYMPH # 1.5 K/uL (1.0-4.3); LYMPH % 14.4 % (20.0-40.0); MEAN CELL VOLUME 86.5 fL (81.0-99.0); MEAN CORPUSCULAR HEMOGLOBIN 28.6 pg (27.0-31.0); MEAN CORPUSCULAR HGB CONC 33.1 g/dL (33.0-37.0); MEAN PLATELET VOLUME 8.8 fL (7.2-11.7); MONO # 0.6 K/uL (0.0-0.8); MONO % 5.5 % (0.0-10.0); NEUT % 77.9 % (50.0-75.0); RBC 4.98 Mil/uL (3.80-5.20); RED CELL DISTRIBUTION WIDTH 13.3 % (11.5-14.5); WHITE BLOOD COUNT 10.2 K/uL (4.8-10.8)
[2017-04-08 03:14] LABS: SQUAMOUS EPITHIAL < 1 /hpf (0-5); URINE BILIRUBIN NEGATIVE (NEGATIVE); URINE BLOOD NEGATIVE (NEGATIVE); URINE CLARITY Clear (Clear); URINE COLOR Yellow (YELLOW); URINE GLUCOSE (UA) NORMAL (Normal); URINE LEUKOCYTE ESTERASE NEG Leu/uL (Negative); URINE NITRATE NEGATIVE (NEGATIVE); URINE PROTEIN NEGATIVE (NEGATIVE); URINE UROBILINOGEN NORMAL mg/dL (0.2-1.0)
[2017-04-08 03:17] LABS: ALB/GLOB RATIO 1.4 (1.0-2.1); ALBUMIN 4.1 g/dL (3.5-5.0); ALT/SGPT 26 U/L (9-52); AST/SGOT 25 U/L (14-36); BLOOD UREA NITROGEN 19 mg/dL (7-17); CALCIUM 8.9 mg/dl (8.6-10.4); GFR AFRICAN-AMERICAN > 60; GFR NON-AFRICAN AMERICAN > 60; LIPASE 171 U/L (23-300)
[2017-04-08] MEDS ORDERED: Levothyroxine 50 MCG TAB PO SCH (10:00)
[2017-04-08] MEDS: Belladonna-Phenobarbital PO SCH ×3 (10:33→17:39)
[2017-04-08] MEDS: Enoxaparin 40 mg Syringe SC SCH (10:33)
[2017-04-08] MEDS: Dextrose 5%/0.45% NS 1,000 ML IV SCH ×2 (10:33→20:42)
[2017-04-08] MEDS: (Novolog) Insulin Aspart, Recombinant 100 u/ml 10 ml vial SC SCH ×3 (11:44→21:32)
[2017-04-08 12:53] VITALS: RESP 20
--- NOTE | 2017-04-08 15:23 | RAD ---
PROCEDURE: Radiographs of the chest and abdomen (obstructive series) HISTORY: abd pain COMPARISON: No prior. TECHNIQUE: AP radiograph of the chest, with upright and supine radiographs of the abdomen. FINDINGS: CHEST: No acute infiltrate, pleural effusion or pneumothorax is identified. Cardiac silhouette appears upper limits of normal. There is no pulmonary vascular derangement identified. A small calcified pleural plaque is reiterated at the inferior right lung zone well identified on prior lung base sections from prior abdomen and pelvis pelvis CT dated 06/04/2016. ABDOMEN AND PELVIS: Bowel: Moderate dilatation of central to left lower quadrant abdominal small-bowel loops is identified with a moderate amount retained retained fecal material scattered throughout the large bowel an with luminal gas seen in the distal sigmoid and the rectum. Consider developing bowel ileus or even an early small bowel obstruction. Chain sutures are identified at a bowel loop in the left upper quadrant. Free air: None. Bones: Unremarkable. Other findings: None. IMPRESSION: Possible developing small bowel ileus or early small bowel obstruction. Follow-up CT or abdomen radiography recommended.
--- NOTE | 2017-04-08 17:38 | CP.PCM.CON ---
History of Present Illness - History of Present Illness History of Present Illness: General Surgery Consult 76F presented to ED for abdominal pain x 1 day in the lower abd, non radiating, worse than her prior admission. + bloating, flatus, normal appetite. Denies F/ C, N/V, and other complaints. Was recently here for similar issues. Just prior to my visit with her she had a normal BM followed by a large amount of diarrhea and now feels much better. PMH: DM, HLD PSH: B/L knee sx, B/L eye sx, cholecystectomy, colon tumor resection (benign tumor) SH: Denies tobacco, ETOH or illicit drug use All: NKDA Meds: See MAR Review of Systems - Review of Systems All systems: reviewed and no additional remarkable complaints except (as per HPI ) Past Patient History - Infectious Disease Hx of Infectious Diseases: None - Tetanus Immunizations Tetanus Immunization: Unknown - Past Medical History & Family History Past Medical History?: Yes - Past Social History Smoking Status: Never Smoked - CARDIAC Hx Hypercholesterolemia: Yes - PULMONARY Hx Respiratory Disorders: No Hx Pneumonia: Yes - NEUROLOGICAL Hx Neurological Disorder: No - HEENT Hx HEENT Problems: Yes Hx Cataracts: Yes (BIOL) - RENAL Hx Chronic Kidney Disease: No Date of Last Dialysis Treatment: 04/08/17 - ENDOCRINE/METABOLIC Hx Hypothyroidism: Yes - HEMATOLOGICAL/ONCOLOGICAL Hx Blood Disorders: No - INTEGUMENTARY Hx Dermatological Problems: No - MUSCULOSKELETAL/RHEUMATOLOGICAL Hx Falls: No (reported by patient) - GASTROINTESTINAL Hx Gall Bladder Disease: Yes Hx Gastritis: Yes - GENITOURINARY/GYNECOLOGICAL Hx Genitourinary Disorders: No - PSYCHIATRIC Hx Substance Use: No - SURGICAL HISTORY Hx Appendectomy: Yes Hx Cholecystectomy: Yes - ANESTHESIA Hx Anesthesia: Yes Hx Anesthesia Reactions: No Hx Malignant Hyperthermia: No Meds Allergies/Adverse Reactions: Allergies Allergy/AdvReac Type Severity Reaction Status Date / Time No Known Allergies Allergy Verified 04/08/17 01:56 - Medications Medications: Current Medications Belladonna/Phenobarbital () 1 tab PO TID [facility] Last Admin: 04/08/17 14:32 Dose: 1 tab Enoxaparin Sodium (Lovenox) 40 mg SC DAILY [facility] Last Admin: 04/08/17 10:33 Dose: 40 mg Dextrose/Sodium Chloride (Dextrose 5%/0.45% Ns 1000 Ml) 1,000 mls @ 100 mls/hr IV .Q10H [facility] Last Admin: 04/08/17 10:33 Dose: 100 mls/hr Insulin Aspart (Novolog) 0 unit SC ACHS [facility] PRN Reason: Protocol Last Admin: 04/08/17 11:44 Dose: Not Given Levothyroxine Sodium (Synthroid) 50 mcg PO DAILY@0600 [facility] Rosuvastatin Calcium (Crestor) 5 mg PO HS [facility] Physical Exam - Constitutional Appears: Non-toxic - Head Exam Head Exam: ATRAUMATIC, NORMOCEPHALIC - Eye Exam Eye Exam: EOMI. absent: Scleral icterus - ENT Exam ENT Exam: Mucous Membranes Dry Additional comments: trachea midline - Respiratory Exam Respiratory Exam: NORMAL BREATHING PATTERN. absent: Respiratory Distress - Cardiovascular Exam Cardiovascular Exam: RRR, +S1, +S2 - GI/Abdominal Exam GI & Abdominal Exam: Soft, Tenderness (minimal in lower quadrants). absent: Distended, Firm, Guarding, Rebound, Rigid - Rectal Exam Rectal Exam: Deferred - Extremities Exam Extremities exam: Positive for: normal capillary refill, pedal pulses present. Negative for: calf tenderness - Back Exam Back exam: absent: CVA tenderness (L), CVA tenderness (R) - Neurological Exam Neurological exam: Alert, Oriented x3 - Psychiatric Exam Psychiatric exam: Normal Affect, Normal Mood - Skin Skin Exam: Dry, Warm Results - Vital Signs Recent Vital Signs: Last Vital Signs Temp 98 F 04/08/17 07:52 Pulse 64 04/08/17 07:52 Resp 20 04/08/17 07:52 BP 97/56 L 04/08/17 07:52 Pulse Ox 96 04/08/17 07:52 - Labs Result Diagrams: 04/08/17 02:51 04/08/17 02:51 Labs: Laboratory Results - last 24 hr 04/08/17 04/08/17 04/08/17 02:51 02:51 03:07 WBC 10.2 RBC 4.98 Hgb 14.3 Hct 43.1 MCV 86.5 MCH 28.6 MCHC 33.1 RDW 13.3 Plt Count 197 MPV 8.8 Neut % (Auto) 77.9 H Lymph % (Auto) 14.4 L [place] % (Auto) 5.5 Eos % (Auto) 1.8 Baso % (Auto) 0.4 Neut # 8.0 H Lymph # 1.5 [place] # 0.6 Eos # 0.2 Baso # 0.0 Sodium 134 Potassium 4.0 Chloride 99 Carbon Dioxide 24 Anion Gap 15 BUN 19 H Creatinine 0.7 Est GFR ( Amer) > 60 Est GFR (Non-Af Amer) > 60 POC Glucose (mg/dL) Random Glucose 118 H Calcium 8.9 Total Bilirubin 1.5 H AST 25 ALT 26 Alkaline Phosphatase 88 Total Protein 7.1 Albumin 4.1 Globulin 3.0 Albumin/Globulin Ratio 1.4 Lipase 171 Carcinoembryonic Ag [place] 125 Antigen Urine Color Yellow Urine Clarity Clear Urine pH 5.0 Ur Specific [place] 1.021 Urine Protein Negative Urine Glucose (UA) Normal Urine Ketones Negative Urine Blood Negative Urine Nitrate Negative Urine Bilirubin Negative Urine Urobilinogen Normal Ur Leukocyte Esterase Neg Urine WBC (Auto) 1 Ur Squamous Epith Cells < 1 04/08/17 04/08/17 04/08/17 11:37 11:41 16:32 WBC RBC Hgb Hct MCV MCH MCHC RDW Plt Count MPV Neut % (Auto) Lymph % (Auto) [place] % (Auto) Eos % (Auto) Baso % (Auto) Neut # Lymph # [place] # Eos # Baso # Sodium Potassium Chloride Carbon Dioxide Anion Gap BUN Creatinine Est GFR ( Amer) Est GFR (Non-Af Amer) POC Glucose (mg/dL) 104 88 Random Glucose Calcium Total Bilirubin AST ALT Alkaline Phosphatase Total Protein Albumin Globulin Albumin/Globulin Ratio Lipase Carcinoembryonic Ag 2.5 [place] 125 Antigen 6.3 Urine Color Urine Clarity Urine pH Ur Specific [place] Urine Protein Urine Glucose (UA) Urine Ketones Urine Blood Urine Nitrate Urine Bilirubin Urine Urobilinogen Ur Leukocyte Esterase Urine WBC (Auto) Ur Squamous Epith Cells - Imaging and Cardiology Abdominal x-ray Status: Image reviewed by me, Report reviewed by me Assessment & Plan - Assessment and Plan (Free Text) Assessment: 76F with pSBO vs enteritis, resolving Plan: Monitor bowel function Pain control. Stool softeners. If bowel movements continue and pain subsides no surgical intervention is required D/W Dr. Catia Marques PGY4
--- NOTE | 2017-04-08 23:50 | CP.PCM.HP ---
History of Present Illness - History of Present Illness History of Present Illness: 76 years old female complaining of a lower abdominal pain yesterday evening. She denies any nausea, vomiting, fever. She was recently hospitalized for a partial small bowel obstruction. She admitted to be constipated for the past few days and took Nexium for that problem. An obstructive series revealed an early bowel obstruction with bowels full of feces. Present on Admission - Present on Admission Any Indicators Present on Admission: No Review of Systems - Gastrointestinal Gastrointestinal: Abdominal Pain, Constipation Past Patient History - Infectious Disease Hx of Infectious Diseases: None - Tetanus Immunizations Tetanus Immunization: Unknown - Past Medical History & Family History Past Medical History?: Yes - Past Social History Smoking Status: Never Smoked Alcohol: None Drugs: Denies Home Situation {Lives}: With Family Domestic Violence: Negative - CARDIAC Hx Hypercholesterolemia: Yes - PULMONARY Hx Respiratory Disorders: No Hx Pneumonia: Yes - NEUROLOGICAL Hx Neurological Disorder: No - HEENT Hx HEENT Problems: Yes Hx Cataracts: Yes (BIOL) - RENAL Hx Chronic Kidney Disease: No Date of Last Dialysis Treatment: 04/08/17 - ENDOCRINE/METABOLIC Hx Hypothyroidism: Yes - HEMATOLOGICAL/ONCOLOGICAL Hx Blood Disorders: No - INTEGUMENTARY Hx Dermatological Problems: No - MUSCULOSKELETAL/RHEUMATOLOGICAL Hx Falls: No (reported by patient) - GASTROINTESTINAL Hx Bowel Surgery: Yes (Hx of colon resection for a diverticulitis.) Hx Diverticulitis: Yes Hx Gall Bladder Disease: Yes Hx Gastritis: Yes - GENITOURINARY/GYNECOLOGICAL Hx Genitourinary Disorders: No - PSYCHIATRIC Hx Substance Use: No - SURGICAL HISTORY Hx Surgeries: Yes (colectomy for diverticulitis.) Hx Appendectomy: Yes Hx Cholecystectomy: Yes - ANESTHESIA Hx Anesthesia: Yes Hx Anesthesia Reactions: No Hx Malignant Hyperthermia: No Meds Allergies/Adverse Reactions: Allergies Allergy/AdvReac Type Severity Reaction Status Date / Time No Known Allergies Allergy Verified 04/08/17 01:56 Physical Exam - Constitutional Appears: No Acute Distress - Head Exam Head Exam: NORMAL INSPECTION - Eye Exam Eye Exam: Normal appearance - ENT Exam ENT Exam: Normal Exam - Neck Exam Neck exam: Positive for: Normal Inspection - Respiratory Exam Respiratory Exam: Clear to Auscultation Bilateral, NORMAL BREATHING PATTERN - Cardiovascular Exam Cardiovascular Exam: REGULAR RHYTHM - GI/Abdominal Exam GI & Abdominal Exam: Distended, Hyperactive Bowel Sounds, Tenderness Additional comments: Tender hypogastric area. No guarding. - Rectal Exam Rectal Exam: Deferred - Extremities Exam Extremities exam: Positive for: normal inspection - Back Exam Back exam: NORMAL INSPECTION - Neurological Exam Neurological exam: Alert, Normal Gait, Oriented x3 - Psychiatric Exam Psychiatric exam: Anxious - Skin Skin Exam: Dry, Intact, Normal Color, Warm Results - Vital Signs Recent Vital Signs: Last Vital Signs Temp 98.6 F 04/08/17 16:00 Pulse 68 04/08/17 16:00 Resp 20 04/08/17 16:00 BP 111/70 04/08/17 16:00 Pulse Ox 96 04/08/17 16:00 - Labs Result Diagrams: 04/08/17 02:51 04/08/17 02:51 Labs: Laboratory Results - last 24 hr 04/08/17 04/08/17 04/08/17 02:51 02:51 03:07 WBC 10.2 RBC 4.98 Hgb 14.3 Hct 43.1 MCV 86.5 MCH 28.6 MCHC 33.1 RDW 13.3 Plt Count 197 MPV 8.8 Neut % (Auto) 77.9 H Lymph % (Auto) 14.4 L [place] % (Auto) 5.5 Eos % (Auto) 1.8 Baso % (Auto) 0.4 Neut # 8.0 H Lymph # 1.5 [place] # 0.6 Eos # 0.2 Baso # 0.0 Sodium 134 Potassium 4.0 Chloride 99 Carbon Dioxide 24 Anion Gap 15 BUN 19 H Creatinine 0.7 Est GFR ( Amer) > 60 Est GFR (Non-Af Amer) > 60 POC Glucose (mg/dL) Random Glucose 118 H Calcium 8.9 Total Bilirubin 1.5 H AST 25 ALT 26 Alkaline Phosphatase 88 Total Protein 7.1 Albumin 4.1 Globulin 3.0 Albumin/Globulin Ratio 1.4 Lipase 171 Carcinoembryonic Ag [place] 125 Antigen Urine Color Yellow Urine Clarity Clear Urine pH 5.0 Ur Specific [place] 1.021 Urine Protein Negative Urine Glucose (UA) Normal Urine Ketones Negative Urine Blood Negative Urine Nitrate Negative Urine Bilirubin Negative Urine Urobilinogen Normal Ur Leukocyte Esterase Neg Urine WBC (Auto) 1 Ur Squamous Epith Cells < 1 04/08/17 04/08/17 04/08/17 11:37 11:41 16:32 WBC RBC Hgb Hct MCV MCH MCHC RDW Plt Count MPV Neut % (Auto) Lymph % (Auto) [place] % (Auto) Eos % (Auto) Baso % (Auto) Neut # Lymph # [place] # Eos # Baso # Sodium Potassium Chloride Carbon Dioxide Anion Gap BUN Creatinine Est GFR ( Amer) Est GFR (Non-Af Amer) POC Glucose (mg/dL) 104 88 Random Glucose Calcium Total Bilirubin AST ALT Alkaline Phosphatase Total Protein Albumin Globulin Albumin/Globulin Ratio Lipase Carcinoembryonic Ag 2.5 CA 125 Antigen 6.3 Urine Color Urine Clarity Urine pH Ur Specific [place] Urine Protein Urine Glucose (UA) Urine Ketones Urine Blood Urine Nitrate Urine Bilirubin Urine Urobilinogen Ur Leukocyte Esterase Urine WBC (Auto) Ur Squamous Epith Cells 04/08/17 21:24 WBC RBC Hgb Hct MCV MCH MCHC RDW Plt Count MPV Neut % (Auto) Lymph % (Auto) [place] % (Auto) Eos % (Auto) Baso % (Auto) Neut # Lymph # [place] # Eos # Baso # Sodium Potassium Chloride Carbon Dioxide Anion Gap BUN Creatinine Est GFR ( Amer) Est GFR (Non-Af Amer) POC Glucose (mg/dL) 114 H Random Glucose Calcium Total Bilirubin AST ALT Alkaline Phosphatase Total Protein Albumin Globulin Albumin/Globulin Ratio Lipase Carcinoembryonic Ag [place] 125 Antigen Urine Color Urine Clarity Urine pH Ur Specific [place] Urine Protein Urine Glucose (UA) Urine Ketones Urine Blood Urine Nitrate Urine Bilirubin Urine Urobilinogen Ur Leukocyte Esterase Urine WBC (Auto) Ur Squamous Epith Cells Assessment & Plan (1) Abdominal pain Assessment and Plan: Probably from fecal impaction. Status: Acute (2) Constipation Assessment and Plan: Try Colace or Dulcolax. Status: Acute
--- NOTE | 2017-04-09 04:10 | CON ---
DATE: 04/08/[address] Ebony Mixon to Dr. Kyaw Wilkes. HISTORY OF PRESENT ILLNESS: I was called for a GI consultation by the admitting MD as well as the patient herself, who called me about 1:00 in the morning on 04/08/2017 complaining of severe, sharp generalized abdominal pain, but mainly in the right and left lower quadrant, was advised by myself to go to the emergency room at that time with recent severe constipation. Patient recently was seen in the emergency room with underlying diagnosis of partial small bowel obstruction. No chest pain, no palpitation, no reported significant shortness of breath. No chills or fevers. Patient reported nausea with mild dyspepsia, but no vomiting. PAST MEDICAL HISTORY: Including, but not limited to, 1. Peptic ulcer disease with gastric ulcer. 2. 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 3. Diverticulosis. 4. Hypothyroidism, hyperlipidemia, diabetes mellitus. 5. Reported gallbladder disease before. 6. Status post cholecystectomy as well as status post appendectomy. FAMILY HISTORY: Unknown. SOCIAL HISTORY: No reported history of cigarette smoking or alcohol intake. CURRENT MEDICATION: Medication lists were reviewed. ALLERGIES: ALLERGIES TO MEDICATION, UNCLEAR. LABORATORY DATA: After being admitted to the hospital, initial blood workup showed normal CBC, slightly elevated white blood cells to 10.2 with increased blood glucose level to 118 and slightly elevated BUN to 19, but normal creatinine. Chest x-ray primary report was normal. PHYSICAL EXAMINATION: GENERAL: A 76-year-old female, awake, alert, oriented. Patient appears to be more comfortable at the time she was seen by me, after having a large bowel movement. VITAL SIGNS: Afebrile. Pulse of 72, respiratory rate 20 to 24 with blood pressure of 160/82. HEENT: Showed dry oral mucous membrane. Nonicteric sclerae. LYMPH NODES: No lymphadenitis or lymphadenopathy. LUNGS: Few scattered crepitation with decreased air entry at bases. HEART: Positive S1 and S2. ABDOMEN: Soft with mild distention with generalized tenderness. No masses or organomegaly. No rebound tenderness or guarding. RECTAL: Patient refused. EXTREMITIES: Without significant edema, clubbing or cyanosis. NEUROLOGIC: No reported new neurological deficits, sensory or motor. No focal deficits. VASCULAR: Peripheral pulses are present bilaterally. IMPRESSION: 1. Intermittent partial bowel obstruction, subsequently resolved. 2. Constipation secondary to above. 3. Multiple past medical history including but not limited to hyperlipidemia, hypothyroidism, peptic ulcer disease with gastric ulcer, colon polypoid lesion with neoplastic changes and partial colon resection by history. 4. Gallbladder disorder. SUGGESTION: 1. Agree with your plan. 2. Repeat cancer markers. 3. Flat and upright abdominal x-ray. 4. Continue clear liquid diet. Colace p.o. 5. Proton pump inhibitors. 6. Flagyl IV. 7. Rehydration. 8. Close observation. 9. Patient may need followup colonoscopy soon due to her known past medical history and small bowel follow-through should be kept in mind in case if the patient has repeated such symptoms. Thank you for letting me participate in your patient's case management. Further recommendation to follow. Ebony Mixon MD
[2017-04-09] MEDS ORDERED: Levothyroxine 50 MCG TAB PO SCH (06:00)
[2017-04-09] MEDS: Dextrose 5%/0.45% NS 1,000 ML IV SCH (06:00)
[2017-04-09] MEDS: (Novolog) Insulin Aspart, Recombinant 100 u/ml 10 ml vial SC SCH (07:29)
[2017-04-09 09:04] VITALS: BP 134/75; PULSE 60; TEMP 97.4; O2SAT 98
[2017-04-09] MEDS: Belladonna-Phenobarbital PO SCH (09:16)
[2017-04-09] MEDS: Enoxaparin 40 mg Syringe SC SCH (09:16)
[2017-04-09] MEDS ORDERED: Influenza Vaccine 60 mcg/0.5 mL SYR (4YR UP) IM ONE (09:35)
--- NOTE | 2017-04-09 11:57 | CP.PCM.PN ---
Subjective - Date & Time of Evaluation Date of Evaluation: 04/09/17 Time of Evaluation: 06:45 - Subjective Subjective: General Surgery Pt S&E, NAEO. + normal BM. Denies abdominal pain. No N/V. Objective - Vital Signs/Intake and Output Vital Signs (last 24 hours): Temp Pulse Resp BP Pulse Ox 97.4 F L 60 20 134/75 98 04/09/17 09:03 04/09/17 09:03 04/09/17 09:03 04/09/17 09:03 04/09/17 09:03 Intake and Output: 04/09/17 04/09/17 06:59 18:59 Intake Total 920 Balance 920 - Labs Labs: 04/08/17 02:51 04/08/17 02:51 - Constitutional Appears: Non-toxic, No Acute Distress - Head Exam Head Exam: ATRAUMATIC, NORMOCEPHALIC - Respiratory Exam Respiratory Exam: NORMAL BREATHING PATTERN. absent: Respiratory Distress - GI/Abdominal Exam GI & Abdominal Exam: Soft. absent: Distended, Firm, Guarding, Rigid, Tenderness - Neurological Exam Neurological Exam: Alert, Awake - Skin Skin Exam: Dry, Warm Assessment and Plan - Assessment and Plan (Free Text) Assessment: 76F with pSBO, resolved Plan: If tolerating diet, ok for DC from a surgical standpoint D/W Dr. Catia Marques PGY4
--- NOTE | 2017-04-10 19:53 | CP.PCM.DIS ---
Provider - Provider Date of Admission: 04/08/17 03:45 Attending physician: Kyaw Wilkes MD Primary care physician: Kyaw Wilkes M.D. Consults: Dr Palencia, Dr Mercer. Time Spent in preparation of Discharge (in minutes): 30 Diagnosis - Discharge Diagnosis (1) Abdominal pain Status: Acute (2) Constipation Status: Acute Hospital Course - Lab Results Lab Results: Most Recent Lab Values WBC 10.2 K/uL (4.8-10.8) 04/08/17 02:51 RBC 4.98 Mil/uL (3.80-5.20) 04/08/17 02:51 Hgb 14.3 g/dL (11.0-16.0) 04/08/17 02:51 Hct 43.1 % (34.0-47.0) 04/08/17 02:51 MCV 86.5 fL (81.0-99.0) 04/08/17 02:51 MCH 28.6 pg (27.0-31.0) 04/08/17 02:51 MCHC 33.1 g/dL (33.0-37.0) 04/08/17 02:51 RDW 13.3 % (11.5-14.5) 04/08/17 02:51 Plt Count 197 K/uL (130-400) 04/08/17 02:51 MPV 8.8 fL (7.2-11.7) 04/08/17 02:51 Neut % (Auto) 77.9 % (50.0-75.0) H 04/08/17 02:51 Lymph % (Auto) 14.4 % (20.0-40.0) L 04/08/17 02:51 [place] % (Auto) 5.5 % (0.0-10.0) 04/08/17 02:51 Eos % (Auto) 1.8 % (0.0-4.0) 04/08/17 02:51 Baso % (Auto) 0.4 % (0.0-2.0) 04/08/17 02:51 Neut # 8.0 K/uL (1.8-7.0) H 04/08/17 02:51 Lymph # 1.5 K/uL (1.0-4.3) 04/08/17 02:51 [place] # 0.6 K/uL (0.0-0.8) 04/08/17 02:51 Eos # 0.2 K/uL (0.0-0.7) 04/08/17 02:51 Baso # 0.0 K/uL (0.0-0.2) 04/08/17 02:51 Sodium 134 mmol/L (132-148) 04/08/17 02:51 Potassium 4.0 mmol/L (3.6-5.2) 04/08/17 02:51 Chloride 99 mmol/L (98-107) 04/08/17 02:51 Carbon Dioxide 24 mmol/L (22-30) 04/08/17 02:51 Anion Gap 15 (10-20) 04/08/17 02:51 BUN 19 mg/dL (7-17) H 04/08/17 02:51 Creatinine 0.7 mg/dL (0.7-1.2) 04/08/17 02:51 Est GFR ( Amer) > 60 04/08/17 02:51 Est GFR (Non-Af Amer) > 60 04/08/17 02:51 POC Glucose (mg/dL) 110 mg/dL (65-110) 04/09/17 06:40 Random Glucose 118 mg/dL (65-105) H 04/08/17 02:51 Calcium 8.9 mg/dl (8.6-10.4) 04/08/17 02:51 Total Bilirubin 1.5 mg/dL (0.2-1.3) H 04/08/17 02:51 AST 25 U/L (14-36) 04/08/17 02:51 ALT 26 U/L (9-52) 04/08/17 02:51 Alkaline Phosphatase 88 U/L (38-126) 04/08/17 02:51 Total Protein 7.1 g/dL (6.3-8.3) 04/08/17 02:51 Albumin 4.1 g/dL (3.5-5.0) 04/08/17 02:51 Globulin 3.0 gm/dL (2.2-3.9) 04/08/17 02:51 Albumin/Globulin Ratio 1.4 (1.0-2.1) 04/08/17 02:51 Lipase 171 U/L (23-300) 04/08/17 02:51 Carcinoembryonic Ag 2.5 ng/mL (0-3.0) 04/08/17 11:41 CA 125 Antigen 6.3 U/mL (0-35) 04/08/17 11:41 Urine Color Yellow (YELLOW) 04/08/17 03:07 Urine Clarity Clear (Clear) 04/08/17 03:07 Urine pH 5.0 (5.0-8.0) 04/08/17 03:07 Ur Specific [place] 1.021 (1.003-1.030) 04/08/17 03:07 Urine Protein Negative mg/dL (NEGATIVE) 04/08/17 03:07 Urine Glucose (UA) Normal mg/dL (Normal) 04/08/17 03:07 Urine Ketones Negative mg/dL (NEGATIVE) 04/08/17 03:07 Urine Blood Negative (NEGATIVE) 04/08/17 03:07 Urine Nitrate Negative (NEGATIVE) 04/08/17 03:07 Urine Bilirubin Negative (NEGATIVE) 04/08/17 03:07 Urine Urobilinogen Normal mg/dL (0.2-1.0) 04/08/17 03:07 Ur Leukocyte Esterase Neg Bernardo/uL (Negative) 04/08/17 03:07 Urine WBC (Auto) 1 /hpf (0-5) 04/08/17 03:07 Ur Squamous Epith Cells < 1 /hpf (0-5) 04/08/17 03:07 - Hospital Course Hospital Course: 76 years old female hospitalized for a severe lower abdominal pain for one day duration. She did not move her bowel for a few days. She denies any nausea, any fever, any vomiting. An obstructive abdominal series showed dilated small bowel loops, moderate fecal materials in the large bowels, but some gas in the colon as well. She was kep on NPO, and was given Colace. The same night, she had a large bowel movement and the abdominal pain resolved. She was put back on a regular diabetic diet which she tolerated well. She was discharged home next morning on 04/09/2017 and was told to resume all her home medications and a have a follow up with Dr Palencia in one week. - Date & Time of H&P Date of H&P: 04/08/17 Discharge Exam - Head Exam Head Exam: ATRAUMATIC, NORMOCEPHALIC - Eye Exam Eye Exam: Normal appearance - ENT Exam ENT Exam: Normal Exam - Neck Exam Neck exam: Normal Inspection - Respiratory Exam Respiratory Exam: Clear to PA & Lateral, NORMAL BREATHING PATTERN, UNREMARKABLE - Cardiovascular Exam Cardiovascular Exam: REGULAR RHYTHM - GI/Abdominal Exam GI & Abdominal Exam: Normal Bowel Sounds, Soft - Rectal Exam Rectal Exam: Deferred - Extremities Exam Extremities exam: normal inspection - Back Exam Back exam: NORMAL INSPECTION - Neurological Exam Neurological exam: Alert, Normal Gait, Oriented x3 - Psychiatric Exam Psychiatric exam: Anxious - Skin Skin Exam: Dry, Intact, Normal Color, Warm Discharge Plan - Follow Up Plan Condition: FAIR Disposition: HOME/ ROUTINE Instructions: Constipation (DC), Heart Healthy Diet (DC), Low Sodium Diet (DC) , Bowel Obstruction (DC), Ileus (DC) Additional Instructions: Activity as rolerated. Referrals: Ebony Palencia [Staff Provider] - Eagle Bardales Jr., MD [Staff Provider] - Kyaw Wilkes MD [Staff Provider] - 1 Week
== END 2017-04-09 11:28 | disposition home or self-care (01) | DRG 390 ==
LOC: C.ER 01:35 → C.6T 03:45
PROVIDERS: ADMIT Internal Medicine Cardiovascular Disease; ATTEND Internal Medicine Cardiovascular Disease
DX: K56.600 Partial intestinal obstruction, unspecified as to cause (principal); E11.9 Type 2 diabetes mellitus without complications; E03.9 Hypothyroidism, unspecified; K56.7 Ileus, unspecified; E78.5 Hyperlipidemia, unspecified; K82.9 Disease of gallbladder, unspecified; Z90.49 Acquired absence of other specified parts of digestive tract; K56.41 Fecal impaction

== ENCOUNTER 2017-05-05 06:55 | Day surgery (SDC) | payer MEDICARE ==
[2017-05-05 08:01] VITALS: BMI 25.9
[2017-05-05] MEDS ORDERED: Propofol 10 mg/ml Inj (20 ML) ONE (09:06)
[2017-05-05] MEDS ORDERED: Lactated Ringer's 1,000 ML IV ONE (09:12)
--- NOTE | 2017-05-05 09:12 | CP.SDSHP ---
Same Day Surgery H & P - History Proposed Procedure: EGD / COLONSCOPY Pre-Op Diagnosis: SEE NOTES - Previous Medical/Surgical History Cardiac: Hypertension Endocrine/Metabolic: Thyroid Disease, Diabetes, Other Misc: Other Pain: 4.Moderate Pain Previous Surgical History: PARTIAL COLON RESECTION - Allergies Allergies: Allergies No Known Allergies Allergy (Verified 04/08/17 01:56) - Physical Exam General Appearance: N Vital Signs: Vital Signs 05/05/17 08:06 Temperature 98.9 F Pulse Rate 68 Respiratory 19 Rate Blood Pressure 121/70 O2 Sat by Pulse 100 Oximetry Mental Status: Alert & Oriented x3 Neuro: WNL Heart: Other Lungs: WNL GI: Other - {Optional Preform as Required} Breast: WNL Abdomen: Other Rectal: Other Integument: WNL : WNL Ortho: WNL ENT: WNL - Impression Pt. Evaluated Today:Candidate for Anesthesia & Procedure: Yes - Date & Time Time: 09:12 Short Stay Discharge - Short Stay Discharge Admitting Diagnosis/Reason for Visit: DYSPEPSIA, RECTAL BLEEDING Disposition: HOME/ ROUTINE
[2017-05-05 09:44] VITALS: TEMP 96.6
[2017-05-05 09:59] VITALS: O2SAT 100
[2017-05-05] MEDS ORDERED: Pantoprazole 40 mg EC Tab PO ONE (10:15)
[2017-05-05] MEDS ORDERED: Belladonna-Phenobarbital PO ONE (10:15)
[2017-05-05 10:26] VITALS: BP 117/70; PULSE 66; RESP 16
== END 2017-05-05 10:50 | disposition home or self-care (01) ==
LOC: C.ENDO 06:55
PROVIDERS: ATTEND Specialist
DX: K29.70 Gastritis, unspecified, without bleeding (principal); K30 Functional dyspepsia; K62.5 Hemorrhage of anus and rectum; E11.9 Type 2 diabetes mellitus without complications; I10 Essential (primary) hypertension; K44.9 Diaphragmatic hernia without obstruction or gangrene; K29.80 Duodenitis without bleeding; Z86.010 Personal history of colon polyps; K57.30 Diverticulosis of large intestine without perforation or abscess without bleeding; K64.4 Residual hemorrhoidal skin tags
CPT/HCPCS: 43239; 45380; 82948; 88305; 88342; J2001; J2704; J7120

== ENCOUNTER 2017-06-26 09:40 | Emergency (ER) | payer MEDICARE, SELFPAY ==
[2017-06-26 09:41] VITALS: BMI 25.9
[2017-06-26 09:54] VITALS: PULSE 59; O2SAT 95
--- NOTE | 2017-06-26 10:01 | C.PDOC ---
History Of Present Illness 77 year old female presents to the ED for evaluation of generalized abdominal cramping and intermittent bloating x 1 week. Patient denies fever, chills, nausea, vomiting, diarrhea. Patient reports last normal bowel movement was this morning, but reports occasional excessive flatus. Patient has past surgical history of cholecystectomy. ON METAMUCIL AND STOOL SOFTENER GEN ABD PAIN, BLOATING SINCE YEST. NO NVD, FEVER. NORMAL BM +EXCESSIVE FLATUS. + PSH BRANDEN EXAM NAD NONTOXIC ABD SOFT NT ND NO R/G GOOD TURGOR REMAINDER NEG Time Seen by Provider: 06/26/17 09:58 Chief Complaint (Nursing): Abdominal Pain Past Medical History Vital Signs: Last Vital Signs Temp 98.4 F 06/26/17 11:14 Pulse 59 L 06/26/17 11:14 Resp 19 06/26/17 11:14 BP 126/74 06/26/17 11:14 Pulse Ox 95 06/26/17 23:29 - Medical History PMH: Colonic Polyps, Diabetes, Diverticulitis, Gastritis, Gastrointestinal Ulcer , Gall Bladder Disease, Hypercholesterolemia, Hypothyroidism, 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) Denies: Chronic Kidney Disease Surgical History: Appendectomy, Cholecystectomy, Endoscopy - [facility] Procedures CHOLECYSTECTOMY (06/03/13) CLOSED ENDOSCOPIC BIOPSY OF LARGE INTESTINE (06/06/14) COLONOSCOPY (10/26/12) ESOPHAGOGASTRODUODENOSCOPY [EGD] W/CLOSED BIOPSY (01/31/14) EXCISION OF STOMACH, ENDO, DIAGN (02/26/16) Family History: States: Unknown Family Hx - Social History Hx Tobacco Use: No Hx Alcohol Use: No Hx Substance Use: No - Immunization History Hx Tetanus Toxoid Vaccination: No Hx Influenza Vaccination: Yes Hx Pneumococcal Vaccination: Yes Physical Exam - Physical Exam Appears: Non-toxic, No Acute Distress Skin: Warm, Dry, Other (good turgor ) Head: Atraumatic, Normacephalic Eye(s): bilateral: Normal Inspection Oral Mucosa: Moist Neck: Supple Chest: Symmetrical, No Deformity, No Tenderness Cardiovascular: Rhythm Regular, No Murmur Respiratory: Normal Breath Sounds, No Rales, No Rhonchi, No Wheezing Gastrointestinal/Abdominal: Soft, No Tenderness, No Distention, No Guarding, No Rebound Extremity: Normal ROM, Capillary Refill (less than 2 seconds ) Neurological/Psych: Oriented x3, Normal Speech, Normal Cognition ED Course And Treatment O2 Sat by Pulse Oximetry: 95 (on RA) Pulse Ox Interpretation: Normal - Other Rad ABD X-Ray: Read By Radiologist Interpretation: HISTORY: PAIN RO CONSTIPATION. COMPARISON: No prior. FINDINGS: BOWEL: No evidence of bowel obstruction. There is a rounded distended bowel loop full of particulate material that may represent feces. There is suture material seen through this collection indicating that this may be the site of prior bowel anastomosis. The possibility of an abscess may be considered in the appropriate clinical circumstance though more likely this represents fecal material within a focally distended loop of bowel. Please correlate. If clinically warranted consider further evaluation with computed tomography. BONES: Normal. OTHER FINDINGS: None. IMPRESSION: Focal distended loop of bowel containing particulate material, likely fecal. Cannot rule out abscess. In the appropriate clinical circumstance consider further evaluation with computed tomography. Findings were discussed with Dr. Saez by telephone at 11:13 a.m. on 06/26/2017. Reevaluation Time: 11:15 Reassessment Condition: Unchanged ([employer] COMFORTABLE READING MAGAZINE. ABD SOFT NT ND NO R/G. MAGNESIUM CITRATE, FU PMD) Disposition Counseled Patient/Family Regarding: Studies Performed, Diagnosis, Need For Followup, Rx Given - Disposition Referrals: Kyaw Wilkes MD [Staff Provider] - Disposition: HOME/ ROUTINE Disposition Time: 11:18 Condition: GOOD Prescriptions: Magnesium Citrate [[facility] Magnesium Citrate] 300 ml PO ONCE #1 bottle Instructions: Constipation, Adult (DC) Forms: [facility] ([place]) - Clinical Impression Clinical Impression: Abdominal pain, Constipation - Scribe Statement The provider has reviewed the documentation as recorded by the Scribe (Anna Thompson) Provider Attestation: All medical record entries made by the Scribe were at my direction and personally dictated by me. I have reviewed the chart and agree that the record accurately reflects my personal performance of the history, physical exam, medical decision making, and the department course for this patient. I have also personally directed, reviewed, and agree with the discharge instructions and disposition.
[2017-06-26 11:15] VITALS: BP 126/74; RESP 19; TEMP 98.4
--- NOTE | 2017-06-26 11:19 | RAD ---
HISTORY: PAIN RO CONSTIPATION COMPARISON: No prior. FINDINGS: BOWEL: No evidence of bowel obstruction. There is a rounded distended bowel loop full of particulate material that may represent feces. There is suture material seen through this collection indicating that this may be the site of prior bowel anastomosis. The possibility of an abscess may be considered in the appropriate clinical circumstance though more likely this represents fecal material within a focally distended loop of bowel. Please correlate. If clinically warranted consider further evaluation with computed tomography. BONES: Normal. OTHER FINDINGS: None. IMPRESSION: Focal distended loop of bowel containing particulate material, likely fecal. Cannot rule out abscess. In the appropriate clinical circumstance consider further evaluation with computed tomography. Findings were discussed with Dr. Saez by telephone at 11:13 a.m. on 06/26/2017.
== END 2017-06-26 11:40 | disposition home or self-care (01) ==
LOC: C.ER 09:40
DX: K59.00 Constipation, unspecified (principal); R10.9 Unspecified abdominal pain

== ENCOUNTER 2018-03-16 19:31 | Emergency (ER) | payer MEDICARE, OTHER ==
[2018-03-16 19:31] VITALS: BMI 25.9
--- NOTE | 2018-03-16 20:39 | C.PDOC ---
History Of Present Illness Patient states that she has abdominal pain, cramping, diffuse. has history of constipation. Last bm about 2 days ago. States that today has had a very small bm, "which she does not count" Time Seen by Provider: 03/16/18 20:38 Chief Complaint (Nursing): Abdominal Pain History Per: Patient History/Exam Limitations: no limitations Onset/Duration Of Symptoms: Days Current Symptoms Are (Timing): Still Present Context: Other Severity: Moderate Pain Scale Rating Of: 4 Location Of Pain/Discomfort: Diffuse Radiation Of Pain To:: None Quality Of Discomfort: Dull, Aching, Cramping Associated Symptoms: denies: Fever, Chills, Nausea, Vomiting Alleviating Factors: None Last Bowel Movement: Days Ago (2) Recent travel outside of the [place]: No Additional History Per: Patient Abnormal Vaginal Bleeding: No Past Medical History Reviewed: Historical Data, Nursing Documentation, Vital Signs Vital Signs: Last Vital Signs Temp 98.2 F 03/16/18 19:41 Pulse 60 03/16/18 19:41 Resp 14 03/16/18 19:41 BP 161/71 H 03/16/18 19:41 Pulse Ox 98 03/16/18 19:41 - Medical History PMH: Colonic Polyps, Diabetes, Diverticulitis, Gastritis, Gastrointestinal Ulcer, Gall Bladder Disease, Hypercholesterolemia, Hypothyroidism, 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) Denies: Chronic Kidney Disease Surgical History: Appendectomy, Cholecystectomy, Endoscopy - [facility] Procedures CHOLECYSTECTOMY (06/03/13) CLOSED ENDOSCOPIC BIOPSY OF LARGE INTESTINE (06/06/14) COLONOSCOPY (10/26/12) ESOPHAGOGASTRODUODENOSCOPY [EGD] W/CLOSED BIOPSY (01/31/14) EXCISION OF STOMACH, ENDO, DIAGN (02/26/16) Family History: States: No Known Family Hx - Social History Hx Tobacco Use: No Hx Alcohol Use: No Hx Substance Use: No - Immunization History Hx Tetanus Toxoid Vaccination: No Hx Influenza Vaccination: Yes Hx Pneumococcal Vaccination: Yes Review Of Systems Constitutional: Negative for: Fever, Chills Cardiovascular: Negative for: Chest Pain Respiratory: Negative for: Shortness of Breath Gastrointestinal: Positive for: Abdominal Pain. Negative for: Nausea, Vomiting Genitourinary: Negative for: Dysuria Musculoskeletal: Negative for: Back Pain Skin: Negative for: Rash Neurological: Negative for: Weakness Psych: Positive for: Anxiety Physical Exam - Physical Exam Appears: Non-toxic, No Acute Distress Skin: Warm, Dry Oral Mucosa: Moist Neck: Supple Chest: Symmetrical Cardiovascular: Rhythm Regular Respiratory: No Rales, No Rhonchi, No Wheezing Gastrointestinal/Abdominal: Soft, Tenderness (mild), No Distention Back: Normal Inspection Extremity: Normal ROM Extremity: Bilateral: Atraumatic Pulses: Left Dorsalis Pedis: Normal, Right Dorsalis Pedis: Normal Neurological/Psych: Oriented x3, Normal Speech Gait: Steady ED Course And Treatment - Laboratory Results Result Diagrams: 03/16/18 21:38 03/16/18 21:38 O2 Sat by Pulse Oximetry: 98 Pulse Ox Interpretation: Normal Reevaluation Time: 23:25 Reassessment Condition: Improved Disposition Counseled Patient/Family Regarding: Studies Performed, Diagnosis, Need For Followup, Rx Given - Disposition Referrals: Kyaw Wilkes MD [Staff Provider] - Ebony Palencia [Staff Provider] - Disposition: HOME/ ROUTINE Disposition Time: 20:39 Condition: FAIR Prescriptions: metroNIDAZOLE [Flagyl] 500 mg PO TID #21 tab Instructions: Acute Abdomen (Belly Pain), Adult (DC), Constipation, Adult (DC) Forms: [facility] ([place]) - Clinical Impression Clinical Impression: Abdominal pain, Constipation, Enteritis
[2018-03-16] MEDS ORDERED: Sodium Chloride 0.9% 1,000 ML IV ONE (20:54)
[2018-03-16 21:41] LABS: BASO # 0.1 K/uL (0.0-0.2); BASO % 0.8 % (0.0-2.0); EOS # 0.1 K/uL (0.0-0.7); EOS % 1.3 % (0.0-4.0); HEMOGLOBIN 13.8 g/dL (11.0-16.0); LYMPH # 1.2 K/uL (1.0-4.3); LYMPH % 17.7 % (20.0-40.0); MEAN CELL VOLUME 87.1 fL (81.0-99.0); MEAN CORPUSCULAR HEMOGLOBIN 28.4 pg (27.0-31.0); MEAN CORPUSCULAR HGB CONC 32.5 g/dL (33.0-37.0); MEAN PLATELET VOLUME 8.4 fL (7.2-11.7); MONO # 0.5 K/uL (0.0-0.8); NEUT % 73.2 % (50.0-75.0); NRBC % 0.1 % (0.0-2.0); RBC 4.88 Mil/uL (3.80-5.20); RED CELL DISTRIBUTION WIDTH 13.3 % (11.5-14.5); WHITE BLOOD COUNT 6.8 K/uL (4.8-10.8)
[2018-03-16 21:46] LABS: SQUAMOUS EPITHIAL 1 /hpf (0-5); URINE BILIRUBIN NEGATIVE (NEGATIVE); URINE BLOOD NEGATIVE (NEGATIVE); URINE CLARITY Clear (Clear); URINE COLOR Yellow (YELLOW); URINE GLUCOSE (UA) NORMAL (Normal); URINE LEUKOCYTE ESTERASE NEG Leu/uL (Negative); URINE PROTEIN NEGATIVE (NEGATIVE); URINE UROBILINOGEN NORMAL mg/dL (0.2-1.0)
[2018-03-16 21:52] LABS: INR 0.9
[2018-03-16 21:53] LABS: ALB/GLOB RATIO 1.7 (1.0-2.1); ALBUMIN 4.4 g/dL (3.5-5.0); ALT/SGPT 26 U/L (9-52); AST/SGOT 29 U/L (14-36); BLOOD UREA NITROGEN 20 mg/dL (7-17); CALCIUM 9.5 mg/dl (8.6-10.4); GFR NON-AFRICAN AMERICAN > 60; LIPASE 245 U/L (23-300)
[2018-03-16 22:00] LABS: PROTHROMBIN TIME 9.9 SECONDS (9.7-12.2)
[2018-03-16] MEDS ORDERED: Iodixanol 320 MG/ML 100 ML BOTTLE IV ONE (22:29)
[2018-03-16 23:40] VITALS: BP 152/68; PULSE 62; RESP 20; TEMP 98.7; O2SAT 97
--- NOTE | 2018-03-17 11:15 | CT ---
Date of service: 03/16/2018 PROCEDURE: CT Abdomen and Pelvis with contrast HISTORY: abd pain COMPARISON: None. TECHNIQUE: Contrast dose: Radiation dose: Total exam DLP = 599.71 mGy-cm. This CT exam was performed using one or more of the following dose reduction techniques: Automated exposure control, adjustment of the mA and/or kV according to patient size, and/or use of iterative reconstruction technique. FINDINGS: LOWER THORAX: Unremarkable. LIVER: Unremarkable. No gross lesion or ductal dilatation. GALLBLADDER AND BILE DUCTS: Unremarkable. PANCREAS: Unremarkable. No gross lesion or ductal dilatation. SPLEEN: Unremarkable. ADRENALS: Unremarkable. No mass. KIDNEYS AND URETERS: 7.2 centimeter right renal cyst. No hydronephrosis. No solid mass. VASCULATURE: Unremarkable. No aortic aneurysm. No aortic atherosclerotic calcification or mural plaque present. BOWEL: Status post prior bowel surgery. Diverticulosis. No obstruction. No gross mural thickening. APPENDIX: Normal appendix. PERITONEUM: Unremarkable. No free fluid. No free air. LYMPH NODES: Unremarkable. No enlarged lymph nodes. BLADDER: Unremarkable. REPRODUCTIVE: 5.4 centimeter probably degenerating right uterine leiomyoma. BONES: No acute fracture. OTHER FINDINGS: None. IMPRESSION: Status post prior bowel surgery. Diverticulosis. No obstruction. No gross mural thickening. Right renal cyst. Leiomyomatous uterus.
== END 2018-03-16 23:30 | disposition home or self-care (01) ==
LOC: C.ER 19:31
DX: K52.9 Noninfective gastroenteritis and colitis, unspecified (principal); K59.00 Constipation, unspecified; R10.9 Unspecified abdominal pain; E03.9 Hypothyroidism, unspecified; E11.9 Type 2 diabetes mellitus without complications; E78.00 Pure hypercholesterolemia, unspecified
CPT/HCPCS: 74177; 80053; 81001; 83690; 85025; 85610; 85730; 99285; Q9967

== ENCOUNTER 2018-05-30 15:29 | Emergency (ER) | payer MEDICARE, OTHER ==
[2018-05-30 15:41] VITALS: BMI 23.4
--- NOTE | 2018-05-30 16:36 | C.PDOC ---
History Of Present Illness 78 years old female presents to ED for complaints of sharp RLQ abdominal pain associated with 1 episode of vomiting. Patient reports she is taking linzess for chronic constipation prescribed to her by Dr. Palencia, her alternative energy engineer. Patient also states she has experiencing watery stool but is normal since she started linzess. Denies any other complaints. <Jaelyn Hutchison - Last Filed: 05/30/18 19:26> History Per: Patient History/Exam Limitations: no limitations Onset/Duration Of Symptoms: Hrs Current Symptoms Are (Timing): Still Present Location Of Pain/Discomfort: RLQ Radiation Of Pain To:: None Quality Of Discomfort: Sharp Associated Symptoms: Vomiting. denies: Fever, Chills, Urinary Symptoms Alleviating Factors: None Last Bowel Movement: Today Recent travel outside of the [place]: No Abnormal Vaginal Bleeding: No <Jaelyn Hutchison - Last Filed: 05/30/18 19:26> <Enoch Waldrop - Last Filed: 05/30/18 22:35> Time Seen by Provider: 05/30/18 16:11 Chief Complaint (Nursing): Abdominal Pain Past Medical History Reviewed: Historical Data, Nursing Documentation, Vital Signs Vital Signs: Last Vital Signs Temp 98.3 F 05/30/18 15:41 Pulse 78 05/30/18 15:41 Resp 18 05/30/18 15:41 BP 149/79 05/30/18 15:41 Pulse Ox 96 05/30/18 15:41 - Medical History PMH: Colonic Polyps, Diabetes, Diverticulitis, Gastritis, Gastrointestinal Ulcer, Gall Bladder Disease, Hypercholesterolemia, Hypothyroidism, 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) Denies: Chronic Kidney Disease Surgical History: Appendectomy, Cholecystectomy, Endoscopy - [facility] Procedures CHOLECYSTECTOMY (06/03/13) CLOSED ENDOSCOPIC BIOPSY OF LARGE INTESTINE (06/06/14) COLONOSCOPY (10/26/12) ESOPHAGOGASTRODUODENOSCOPY [EGD] W/CLOSED BIOPSY (01/31/14) EXCISION OF STOMACH, ENDO, DIAGN (02/26/16) Family History: States: Unknown Family Hx - Social History Hx Tobacco Use: No Hx Alcohol Use: No Hx Substance Use: No - Immunization History Hx Tetanus Toxoid Vaccination: Yes Hx Influenza Vaccination: Yes Hx Pneumococcal Vaccination: Yes <Jaelyn Hutchison - Last Filed: 05/30/18 19:26> Vital Signs: Last Vital Signs Temp 98.3 F 05/30/18 15:41 Pulse 65 05/30/18 18:31 Resp 16 05/30/18 18:31 BP 135/65 05/30/18 18:31 Pulse Ox 96 05/30/18 19:35 - [facility] Procedures CHOLECYSTECTOMY (06/03/13) CLOSED ENDOSCOPIC BIOPSY OF LARGE INTESTINE (06/06/14) COLONOSCOPY (10/26/12) ESOPHAGOGASTRODUODENOSCOPY [EGD] W/CLOSED BIOPSY (01/31/14) EXCISION OF STOMACH, ENDO, DIAGN (02/26/16) <Enoch Waldrop - Last Filed: 05/30/18 22:35> Review Of Systems Constitutional: Negative for: Fever, Chills Cardiovascular: Negative for: Chest Pain Respiratory: Negative for: Shortness of Breath Gastrointestinal: Positive for: Vomiting, Abdominal Pain (RLQ ) Skin: Negative for: Rash Neurological: Negative for: Weakness, Numbness <Jaelyn Hutchison - Last Filed: 05/30/18 19:26> Physical Exam - Physical Exam Appears: Non-toxic, No Acute Distress Skin: Normal Color, Warm, Dry, No Rash Head: Atraumatic, Normacephalic Eye(s): bilateral: Normal Inspection, PERRL, EOMI Oral Mucosa: Moist Neck: Normal ROM, Supple Chest: Symmetrical, No Tenderness Cardiovascular: Rhythm Regular, No Murmur Respiratory: Normal Breath Sounds, No Rales, No Rhonchi, No Wheezing Gastrointestinal/Abdominal: Soft, Tenderness (Mild RLQ ), Other (Surgical scar well healed RUQ and vertical midline of abdomen ) Extremity: Normal ROM Extremity: Bilateral: Atraumatic, Normal Color And Temperature, Normal ROM Neurological/Psych: Oriented x3, Normal Speech Gait: Steady <Jaelyn Hutchison - Last Filed: 05/30/18 19:26> ED Course And Treatment - Laboratory Results Result Diagrams: 05/30/18 17:13 05/30/18 17:13 O2 Sat by Pulse Oximetry: 96 (RA) Pulse Ox Interpretation: Normal <Jaelyn Hutchison - Last Filed: 05/30/18 19:26> - Laboratory Results Result Diagrams: 05/30/18 17:13 05/30/18 17:13 Lab Results: Total Bilirubin 0.7 mg/dL (0.2-1.3) 05/30/18 17:13 AST 30 U/L (14-36) 05/30/18 17:13 ALT 16 U/L (9-52) 05/30/18 17:13 Alkaline Phosphatase 98 U/L (38-126) 05/30/18 17:13 Total Protein 6.8 g/dL (6.3-8.3) 05/30/18 17:13 Albumin 4.3 g/dL (3.5-5.0) 05/30/18 17:13 Globulin 2.5 gm/dL (2.2-3.9) 05/30/18 17:13 Albumin/Globulin Ratio 1.8 (1.0-2.1) 05/30/18 17:13 Urine Color Yellow (YELLOW) 05/30/18 18:13 Urine Clarity Clear (Clear) 05/30/18 18:13 Urine pH 5.0 (5.0-8.0) 05/30/18 18:13 Ur Specific [place] 1.020 (1.003-1.030) 05/30/18 18:13 Urine Protein Negative mg/dL (NEGATIVE) 05/30/18 18:13 Urine Glucose (UA) Normal mg/dL (Normal) 05/30/18 18:13 Urine Ketones Negative mg/dL (NEGATIVE) 05/30/18 18:13 Urine Blood Negative (NEGATIVE) 05/30/18 18:13 Urine Nitrate Negative (NEGATIVE) 05/30/18 18:13 Urine Bilirubin Negative (NEGATIVE) 05/30/18 18:13 Urine Urobilinogen Normal mg/dL (0.2-1.0) 05/30/18 18:13 Ur Leukocyte Esterase Trace Bernardo/uL (Negative) 05/30/18 18:13 Urine WBC (Auto) 7 /hpf (0-5) H 05/30/18 18:13 Urine RBC (Auto) 3 /hpf (0-3) 05/30/18 18:13 Ur Squamous Epith Cells 1 /hpf (0-5) 05/30/18 18:13 - CT Scan/US Abd/Pel CT Other Rad Studies (CT/US): Read By Radiologist, Radiology Report Reviewed CT/US Interpretation: IMPRESSION: Status post cholecystectomy. No mass or bilia ry duct dilatation within the liver. Right renal cyst measuring 6.8 x 5.9 cm. Heterogeneous mass measuring 5.4 x 4.5 cm right adnexal region. Correlation with ultrasound examination of the pelvis recommended. <Enoch Waldrop - Last Filed: 05/30/18 22:35> Medical Decision Making Medical Decision Making: Plan: * Blood work * Urinalysis ct scan ua [address] scan comfortable with non tender abdomen on re-exam, await ct results. will s/o to Dr Waldrop <Jaelyn Hutchison - Last Filed: 05/30/18 19:26> Medical Decision Making: CT showed adnexal mass. Patient will be going to US for pelvis. <Enoch Waldrop - Last Filed: 05/30/18 22:35> Disposition - Disposition Disposition Time: 19:28 <Jaelyn Hutchison - Last Filed: 05/30/18 19:26> Counseled Patient/Family Regarding: Diagnosis - Disposition Disposition Time: 22:33 - POA Present On Arrival: None <Enoch Waldrop - Last Filed: 05/30/18 22:35> - Disposition Disposition: HOME/ ROUTINE Condition: STABLE Prescriptions: Naproxen 375 mg PO TIDPC #20 tablet Instructions: Acute Abdomen (Belly Pain), Uterine Fibroids Forms: [facility] (Tajik), Gen Discharge Inst Ethiopian Print Language: GEORGIAN - Clinical Impression Clinical Impression: Abdominal pain, Fibroid, uterine - PA / [employer]ER / Resident Statement MD/DO has reviewed & agrees with the documentation as recorded. - Scribe Statement The provider has reviewed the documentation as recorded by the Feiibsuzanne Snowden All medical record entries made by the Feiibsuzanne were at my direction and personally dictated by me. I have reviewed the chart and agree that the record accurately reflects my personal performance of the history, physical exam, medical decision making, and the department course for this patient. I have also personally directed, reviewed, and agree with the discharge instructions and disposition. <Jaelyn Hutchison - Last Filed: 05/30/18 19:26> Physician Patient Turnover Patient Signed Over To: Enoch Waldrop Handoff Comments: f/u ct scan and disposition <Jaelyn Hutchison - Last Filed: 05/30/18 19:26>
[2018-05-30 17:19] LABS: HEMOGLOBIN 13.6 g/dL (11.0-16.0); MEAN CELL VOLUME 88.5 fL (81.0-99.0); MEAN CORPUSCULAR HEMOGLOBIN 28.2 pg (27.0-31.0); MEAN CORPUSCULAR HGB CONC 31.8 g/dL (33.0-37.0); MEAN PLATELET VOLUME 9.4 fL (7.2-11.7); RBC 4.84 Mil/uL (3.80-5.20); RED CELL DISTRIBUTION WIDTH 13.2 % (11.5-14.5)
[2018-05-30] MEDS ORDERED: Iohexol 240 (50 ml) PO ONE (17:19)
[2018-05-30] MEDS ORDERED: Iohexol 240 (50 ml) ONE (17:26)
[2018-05-30 17:35] LABS: ALB/GLOB RATIO 1.8 (1.0-2.1); ALBUMIN 4.3 g/dL (3.5-5.0); ALT/SGPT 16 U/L (9-52); AST/SGOT 30 U/L (14-36); BLOOD UREA NITROGEN 19 mg/dL (7-17); CALCIUM 9.3 mg/dl (8.6-10.4); GFR NON-AFRICAN AMERICAN > 60
[2018-05-30] MEDS ORDERED: Iodixanol 320 MG/ML 100 ML BOTTLE IV ONE (17:35)
[2018-05-30 18:20] LABS: SQUAMOUS EPITHIAL 1 /hpf (0-5); URINE BILIRUBIN NEGATIVE (NEGATIVE); URINE BLOOD NEGATIVE (NEGATIVE); URINE CLARITY Clear (Clear); URINE COLOR Yellow (YELLOW); URINE GLUCOSE (UA) NORMAL (Normal); URINE LEUKOCYTE ESTERASE TRACE Leu/uL (Negative); URINE PROTEIN NEGATIVE (NEGATIVE); URINE UROBILINOGEN NORMAL mg/dL (0.2-1.0)
[2018-05-30 22:40] VITALS: BP 99/59; PULSE 59; RESP 20; TEMP 97.7; O2SAT 99
--- NOTE | 2018-05-31 10:38 | CT ---
PROCEDURE: CT Abdomen and Pelvis with oral and IV contrast. HISTORY: right lower ab pain COMPARISON: CT abdomen and pelvis with contrast performed 03/16/18 TECHNIQUE: Contiguous axial images of the abdomen and pelvis. Oral and IV contrast was administered. Coronal and Sagittal reformats generated and reviewed. Contrast dose: 100 mL Visipaque 320 IV Radiation dose: Total exam DLP = 588.96 mGy-cm. This CT exam was performed using one or more of the following dose reduction techniques: Automated exposure control, adjustment of the mA and/or kV according to patient size, and/or use of iterative reconstruction technique. FINDINGS: LOWER THORAX: No visible consolidation, pleural effusion, or pneumothorax. LIVER: Too small to characterize 7 mm left hepatic lobe hypodensity; statistically likely cyst or hemangioma. GALLBLADDER AND BILE DUCTS: Not visualized; cholecystectomy versus contracted state of gallbladder. Surgical clips are not evident. PANCREAS: Unremarkable. SPLEEN: Unremarkable. ADRENALS: Unremarkable. KIDNEYS AND URETERS: The kidneys enhance symmetrically. No hydronephrosis or obstructing renal calculus. 5.7 cm exophytic right upper pole cyst. BLADDER: The urinary bladder appears unremarkable. REPRODUCTIVE: Uterus is present and appears heterogeneous. 4.5 x 5.4 cm heterogeneous right adnexal mass. APPENDIX: The appendix is not identified. No secondary signs of acute appendicitis. BOWEL: The stomach is nondistended. Partial colectomy. Diverticulosis without CT evidence of acute diverticulitis. PERITONEUM: No significant free fluid. No definite free air. LYMPH NODES: No bulky lymphadenopathy identified. VASCULATURE: No aortic aneurysm. No atherosclerotic calcification or mural plaque present. BONES: Osseous demineralization. Degenerative changes. 6 mm anterolisthesis of L4 on L5. OTHER FINDINGS: None. IMPRESSION: Prior partial colectomy. Diverticulosis without CT evidence of acute diverticulitis. Large exophytic right renal cyst. Heterogeneous appearance of the uterus. 4.5 x 5.4 cm heterogeneous indeterminate right adnexal mass. Recommend further evaluation with pelvic ultrasound. Preliminary impression was provided by [employer]
--- NOTE | 2018-05-31 10:43 | US ---
Pelvic ultrasound HISTORY: Right adnexal mass. COMPARISON: CT scan dated 05/30/2018 TECHNIQUE: Real-time sonography was performed through the pelvis utilizing transvaginal technique. FINDINGS: Uterus: Diminutive. 5.1 x 3.2 x 4.5 centimeters. Heterogeneous echotexture. Retroverted. At the anterior right aspect of the uterus, there is an echogenic partially exophytic lesion measuring 4.9 x 4.2 x 4.9 centimeters suggestive for a possible prominent partially pedunculated exophytic fibroid lesion. Endometrium measures 4 millimeters, within normal limits. No free fluid in the pelvic cul-de-sac. Right ovary: 2.5 x 1.8 x 2.1 centimeters. Normal flow. Heterogeneous hypoechoic cyst with associated internal echogenic debris measuring 1.3 x 1.3 x 1.2 centimeters. Left ovary: Not well visualized. IMPRESSION: 1. 4.9 x 4.2 x 4.9 centimeter echogenic partially exophytic lesion seen at the anterior right aspect of the uterus suggestive for a possible prominent fibroid lesion. Correlation with pelvic MRI may be helpful if clinically indicated. 2. 1.3 x 1.3 x 1.2 centimeters heterogeneous hypoechoic cyst at the level of the right ovary with associated internal echogenic debris. Clinical correlation. 4-6 week interval follow-up may be helpful if clinically indicated. A preliminary report was generated at 10:20 p.m. on 05/30/[address] Kyaw Steinberg from [facility]. This case was placed in the PA review folder.
== END 2018-05-30 22:45 | disposition home or self-care (01) ==
LOC: C.ER 15:29
DX: D25.9 Leiomyoma of uterus, unspecified (principal); R10.31 Right lower quadrant pain
CPT/HCPCS: 74177; 76830; 80053; 81001; 85027; 99284; Q9967

== ENCOUNTER 2018-06-08 06:45 | Day surgery (SDC) | payer MEDICARE ==
[2018-06-07 10:34] VITALS: BMI 24.9
--- NOTE | 2018-06-08 08:39 | CP.SDSHP ---
Same Day Surgery H & P - History Proposed Procedure: EGD / COLONSCOPY Pre-Op Diagnosis: SEE NOTES - Previous Medical/Surgical History Cardiac: Hypertension Endocrine/Metabolic: Thyroid Disease, Diabetes, Other Neuro: Backaches Pain: 4.Moderate Pain Previous Surgical History: PARTIAL COLON RESECTION/COLON POLYP. - Allergies Allergies: Allergies No Known Allergies Allergy (Verified 06/08/18 07:16) - Physical Exam General Appearance: N Vital Signs: Vital Signs 06/08/18 06/08/18 07:22 07:41 Temperature 97.3 F L Pulse Rate 78 78 Respiratory 20 Rate Blood Pressure 132/64 O2 Sat by Pulse 98 Oximetry Mental Status: Alert & Oriented x3 Neuro: WNL Heart: Other Lungs: WNL GI: Other - {Optional Preform as Required} Breast: WNL Abdomen: Other Rectal: Other Integument: WNL : WNL Ortho: WNL ENT: WNL - Impression Pt. Evaluated Today:Candidate for Anesthesia & Procedure: Yes - Date & Time Time: 08:39 Short Stay Discharge - Short Stay Discharge Admitting Diagnosis/Reason for Visit: DYSPEPSIA, COLON POLYP Disposition: HOME/ ROUTINE
[2018-06-08] MEDS ORDERED: Propofol 10 mg/ml Inj (20 ML) ONE (08:44)
[2018-06-08] MEDS ORDERED: Lidocaine Hydrochloride 5 ML INJ ONE (08:45)
[2018-06-08] MEDS ORDERED: Glucagon Recombinant 1 mg Inj ONE (08:57)
[2018-06-08] MEDS ORDERED: Belladonna-Phenobarbital PO ONE (09:20)
[2018-06-08 09:43] VITALS: TEMP 97.6
[2018-06-08 10:11] VITALS: RESP 16
[2018-06-08 13:22] VITALS: BP 123/60; PULSE 69; O2SAT 99
== END 2018-06-08 11:35 | disposition home or self-care (01) ==
LOC: C.ENDO 06:45
PROVIDERS: ATTEND Specialist
DX: K29.50 Unspecified chronic gastritis without bleeding (principal); K20.9 Esophagitis, unspecified; K29.80 Duodenitis without bleeding; K44.9 Diaphragmatic hernia without obstruction or gangrene; K64.8 Other hemorrhoids
CPT/HCPCS: 43239; 45380; 82948; 88305; 88342; J1610; J2704

== ENCOUNTER 2018-06-18 07:29 | Outpatient (CLI) | payer MEDICARE | END 2018-06-18 07:30 | disposition home or self-care (01) | LOC: C.USIC 07:29 ==

== ENCOUNTER 2018-07-28 08:14 | Outpatient (CLI) | payer MEDICARE, OTHER | END 2018-07-28 08:15 | disposition home or self-care (01) | LOC: C.RADH 08:14 ==